=== PATIENT | female | born 1985 | race Caucasian/White ===

== ENCOUNTER 2024-07-28 13:29 | Outpatient (AMB) | payer MEDICAID, SELFPAY ==
[2024-07-28 14:01] VITALS: BP 118/76; PULSE 101; RESP 18; TEMP 36.2; O2SAT 98; BMI 24.7
--- NOTE | 2024-07-28 14:01 | OBCLNT_ITS ---
Vital Signs 07/28/24 14:01 Height 1.63 m Height Method Stated Weight 65.544 kg Weight Measurement Method Standing Scale BMI 24.7 BP 118/76 Blood Pressure Source Automatic Cuff Blood Pressure Location Left Upper Arm Position Sitting Respiration 18 Pulse 101 H Pulse Source Monitor Temp 97.2 F Temp Source Oral Pulse Oximetry (%) 98 Oxygen Delivery Method Room Air Allergies/Home Meds Allergies & Medications Allergies No Known Allergies Allergy (Verified 07/28/24 14:03) Medication Reconciliation doxylamine 10 mg-pyridoxine (vit B6) 10 mg tablet,delayed release (Diclegis) 1 tab PO BID 30 days #60 tabs 07/28/24 [Rx] Intake Visit Data Collection New Patient or Established: New Patient (never been to [facility]) Reason for Visit:: OBI Seen by Clinical Staff ONLY (RN/MA): No Director Of Sales Marketing Required: No Do You Feel Safe at Home: Yes Authorities Contacted: N/A PCP or OBGYN visit in last 3 months: No Hx Now: Yes Are you currently on any form of Control: No Last menstrual period: 02/09/24 Pain Present Currently: No Pain Scale Used: Zavala-Smart/Numerical Pain scale:: 0 Smoking Status Smoking Status: Never smoker Questionnaires Covid-19 Vaccine Questionnaire Has patient been vacinated for Covid-19 Have you been vacinated for Covid-19: Yes PHQ-9 PHQ-2 Over the last 2 weeks, how often have you been bothered by any of the following problems? 1. Little interest or pleasure in doing things: not at all 2. Feeling down, depressed, or hopeless: not at all Total score: 0 PHQ-9 3. Trouble falling or staying asleep, or sleeping too much: Not at all 4. Feeling tired or having little energy: Not at all 5. Poor appetite or overeating: Not at all 6. Feeling bad about yourself - or that you are a failure or have let yourself or your family down: Not at all 7. Trouble concentrating on things, such as reading the newspaper or watching television: Not at all 8. Moving or speaking so slowly that other people could have noticed? - Or the opposite - being so fidgety or restless that you have been moving around a lot more than usual: not at all 9. Thoughts that you would be better off or of hurting yourself in some way: Not at all Total score: 0 If you checked off any problems, how difficult have these problems made it for you to do your work, take care of things at home, or get along with other people?: not difficult at all Source: Developed by Drs. Med Montes, Mariza Estevez, Carlos Enrique Gilman and colleagues, with an educational davon from [employer]. Depression screen completed yes Social History Living Situation History Marital Status: Lives With: Family Housing: House Tobacco History Smoking Status: Never smoker Second Hand Smoke Exposure: No Alcohol History Alcohol Intake: Never Domestic Abuse History Do You Feel Safe at Home: Yes Past Medical History Past Medical History Have you ever been diagnosed with any of the following: History of Present Illness HPI Narrative 39 yo for OBI. lmp 02/08/25. EDC 11/12/24. limited OB care. sono in [place], 06/19/24. fetus 19w5. EDC 11/09/24. consistent with dates. taking PNV and folic acid and low dose ASA. c/o nausea. no PTL complaints. + FM, no ptl complaints. denies PMH,no social habit, no surgery OB Initial Visit Menstrual History Menstrual reliability: definite Flow: normal Menstrual regularity: regular Monthly: Yes Age at menarche: 14 On control pills at conception: No OB History : 1 Para: 0 Hx # Pregnancies: 0 Hx Total # of Abortions (Spontaneous & Elective): 0 # of Living Children: 0 Infection History & Risk Evaluation History of STDs: none HIV risk evaluation: low risk Hepatitis B risk evaluation: low risk Patient or partner has history of Genital Herpes: No Varicella/chicken pox status: immunized Genetic Screening & History Genetic Screening/Teratology Counseling - Includes patient, baby's father, or anyone in either family with: 1. Patient's age 35 years or older as of estimated date of delivery: Yes 2. Thalassemia (Surinamese, Icelandic, Mediterranean, or Background); MCV less than 80: No 3. Neural Tube Defect (Meningomyelocele, Spina Bifida, or Anencephaly): No 4. Congenital Heart Defect: No 5. Down Syndrome: No 6. Daniel-Sachs (Ashkenazi Buddhism, Cajun, Spanish Palestinian): No 7. Reji Disease (Ashkenazi Buddhism): No 8. Familial Dysautonomia (Ashkenazi Buddhism): No 9. Sickle Cell Disease or Trait (): No 10. Hemophilia or other blood disorders: No 11. Muscular Dystrophy: No 12. Cystic Fibrosis: No 13. Tatiana's Chorea: No 14. Mental Retardation/Autism: No 15. Other inherited genetic or chromosomal disorder: No 16. Maternal Metabolic Disorder (EG,TYPE 1 Diabetes, PKU): No 17. Patient or baby's father had a child with defects not listed above: No 18. Recurrent loss or a stillbirth: No 19. Medications (including supplements, vitamins, herbs or otc drugs)/illicit/recreational drugs/alcohol since last menstrual period: No 20. Any other: No Infection History 1. Live with someone with TB or exposed to TB: No 2. Rash or viral illness since last menstrual period: No 3. Hepatitis B,C: No Other (see comments) Source: [employer] Review of Systems Review of Systems Systems Reviewed: All systems reviewed, normal except as documented Exam Narrative Physical exam: fh:24, fht: 145 General Limitations: no limitations General Appearance: alert, in no apparent distress, comfortable, cooperative, healthy appearing, well developed and well groomed Head Head exam: atraumatic, normocephalic and normal inspection Chest Chest inspection: Present normal inspection and symmetric chest wall rise Resp Respiratory exam: Present normal lung sounds bilaterally Card Cardiovascular exam: Present regular rate, normal rhythm and normal heart sounds Abdominal Abdominal exam: Present soft and normal bowel sounds Psych Psychiatric exam: Present normal affect and normal mood Assessment & Plan Diagnosis / Problem List (1) Amenorrhea: (2) Encounter for supervision of normal first , second trimester: Status: Acute (3) Advanced maternal age (AMA) in : Status: Acute Plan continue PNV,iron and folic acid, rx for Diclegesis x60, comfort measure for nausea reviewed, ptl precaution discussed. diet and exercise were reviewed. OB panel, NIPT and carrier screen ordered, schedule MFM referral. continue low dose ASA. patent needs 1 hr gtt nv. rtc 4 week Office Procedures OB Clinic LOC & Office Proc's Nursing/Assessment Patient Status: Initial/New Patient OB Clinic Nursing Assessment: BP Monitoring, Medication Reconciliation, Update PMH in EMR and Vital Signs OB Clinic Coordination of Care: Consent,records obtained, informed consent, Education Simp Pt/Fam, Lab and Imaging orders and Staff clarify orders Special Needs: Heart tones New Patient Charge New Patient Point Assignment: 1119 New Patient Point Charge: NUMBERER AND WIRER Level 4 ([id number]) In Clinic Bedside tests Bedside HCG: Yes Urine HCG Ambulatory Location Ambulatory Dept Location: OB Clinic Urine HCG HCG: Yes Results Urine HCG Urine HCG Positive Last Edit by Alisha Ruelas MA on 07/28/24 14:09
--- NOTE | 2024-07-28 14:27 | AMB.OBINITIA ---
Vital Signs 07/28/24 14:01 07/28/24 14:29 Height 1.63 m Height Method Stated Weight 65.544 kg Weight Measurement Method Standing Scale BMI 24.7 BP 118/76 118/76 Blood Pressure Source Automatic Cuff Blood Pressure Location Left Upper Arm Position Sitting Respiration 18 18 Pulse 101 H 101 H Pulse Source Monitor Temp 97.2 F 97.2 F Temp Source Oral Pulse Oximetry (%) 98 98 Oxygen Delivery Method Room Air Allergies/Home Meds Allergies & Medications Allergies No Known Allergies Allergy (Verified 07/28/24 14:03) Medication Reconciliation doxylamine 10 mg-pyridoxine (vit B6) 10 mg tablet,delayed release (Diclegis) 1 tab PO BID 30 days #60 tabs 07/28/24 [Rx] Intake Visit Data Collection Do You Feel Safe at Home: Yes Smoking Status Smoking Status: Never smoker Questionnaires Covid-19 Vaccine Questionnaire Has patient been vacinated for Covid-19 Have you been vacinated for Covid-19: Yes PHQ-9 PHQ-2 Over the last 2 weeks, how often have you been bothered by any of the following problems? 1. Little interest or pleasure in doing things: not at all PHQ-9 3. Trouble falling or staying asleep, or sleeping too much: Not at all 4. Feeling tired or having little energy: Not at all 5. Poor appetite or overeating: Not at all 6. Feeling bad about yourself - or that you are a failure or have let yourself or your family down: Not at all 7. Trouble concentrating on things, such as reading the newspaper or watching television: Not at all 8. Moving or speaking so slowly that other people could have noticed? - Or the opposite - being so fidgety or restless that you have been moving around a lot more than usual: not at all Total score: 0 If you checked off any problems, how difficult have these problems made it for you to do your work, take care of things at home, or get along with other people?: not difficult at all Source: Developed by Drs. Med Montes, Mariza Estevez, Carlos Enrique Gilman and colleagues, with an educational davon from [employer]. Social History Living Situation History Marital Status: Lives With: Family Housing: House Tobacco History Smoking Status: Never smoker Second Hand Smoke Exposure: No Alcohol History Alcohol Intake: Never Domestic Abuse History Do You Feel Safe at Home: Yes Past Medical History Past Medical History Have you ever been diagnosed with any of the following: Results Objective Laboratory: Laboratory Last Values POC Urine HCG, Qual Positive 07/28/24 14:08 Assessment & Plan Diagnosis / Problem List (1) Amenorrhea: (2) Encounter for supervision of normal first , second trimester: Status: Acute Office Procedures OB Clinic LOC & Office Proc's Nursing/Assessment Patient Status: Initial/New Patient OB Clinic Nursing Assessment: BP Monitoring, Medication Reconciliation, Update PMH in EMR and Vital Signs OB Clinic Coordination of Care: Consent,records obtained, informed consent, Education Simp Pt/Fam, Lab and Imaging orders and Staff clarify orders Special Needs: Heart tones New Patient Charge New Patient Point Assignment: 1119 New Patient Point Charge: COSMETIC CONSULTANT Level 4 ([id number]) In Clinic Bedside tests Bedside HCG: Yes Urine HCG Ambulatory Location Ambulatory Dept Location: OB Clinic Urine HCG HCG: Yes Results Urine HCG Urine HCG Positive Last Edit by Alisha Ruelas MA on 07/28/24 14:09
== END 2024-07-28 14:23 | disposition home or self-care (01) ==
LOC: HODSOBC 13:29
PROVIDERS: Supervising Provider Advanced Practice Midwife; Visit Provider Advanced Practice Midwife
DX: O09.512 Supervision of elderly primigravida, second trimester (principal); Z3A.19 19 weeks gestation of pregnancy
CPT/HCPCS: 81001; 81025; 99204; G0463

== ENCOUNTER 2024-08-25 14:12 | Outpatient (AMB) | payer MEDICAID, SELFPAY ==
[2024-08-25 14:19] VITALS: BP 120/75; PULSE 100; RESP 18; TEMP 36.2; O2SAT 98; BMI 25.0
--- NOTE | 2024-08-25 14:19 | OBCLNT_ITS ---
Vital Signs 08/25/24 14:19 Height 1.63 m Height Method Stated Weight 66.395 kg Weight Measurement Method Standing Scale BMI 25.0 BP 120/75 Blood Pressure Source Automatic Cuff Blood Pressure Location Left Upper Arm Position Sitting Respiration 18 Pulse 100 Pulse Source Monitor Temp 97.2 F Temp Source Oral Pulse Oximetry (%) 98 Oxygen Delivery Method Room Air Allergies/Home Meds Allergies & Medications Allergies No Known Allergies Allergy (Verified 08/25/24 14:20) Medication Reconciliation doxylamine 10 mg-pyridoxine (vit B6) 10 mg tablet,delayed release (Diclegis) 1 tab PO BID 30 days #60 tabs 07/28/24 [Rx Confirmed 08/25/24] clotrimazole 2 % vaginal cream (Gyne-Lotrimin) 1 appful vaginal QHS 7 days #21 grams 08/25/24 [Rx] doxylamine 10 mg-pyridoxine (vit B6) 10 mg tablet,delayed release (Diclegis) 1 tab PO BID 30 days #60 tabs 08/25/24 [Rx] nitrofurantoin monohydrate/macrocrystals 100 mg capsule (Macrobid) 100 mg PO BID 7 days #14 caps 08/25/24 [Rx] Intake Visit Data Collection New Patient or Established: Established Patient (seen at [facility] within 3 years) Reason for Visit:: OBC/ NEEDS REFILLS ON NAUSEA MEDICATION Seen by Clinical Staff ONLY (RN/MA): No Stone Lathe Operator Required: No Do You Feel Safe at Home: Yes Authorities Contacted: N/A PCP or OBGYN visit in last 3 months: Yes Date of Last PCP or OBGYN visit: 07/28/24 Hx Now: Yes Are you currently on any form of Control: No Pain Present Currently: No Pain Scale Used: Zavala-Smart/Numerical Pain scale:: 0 Smoking Status Smoking Status: Never smoker Questionnaires Covid-19 Vaccine Questionnaire Has patient been vacinated for Covid-19 Have you been vacinated for Covid-19: Yes PHQ-9 PHQ-2 Over the last 2 weeks, how often have you been bothered by any of the following problems? 1. Little interest or pleasure in doing things: not at all 2. Feeling down, depressed, or hopeless: not at all Total score: 0 PHQ-9 3. Trouble falling or staying asleep, or sleeping too much: Not at all 4. Feeling tired or having little energy: Not at all 5. Poor appetite or overeating: Not at all 6. Feeling bad about yourself - or that you are a failure or have let yourself or your family down: Not at all 7. Trouble concentrating on things, such as reading the newspaper or watching television: Not at all 8. Moving or speaking so slowly that other people could have noticed? - Or the opposite - being so fidgety or restless that you have been moving around a lot more than usual: not at all 9. Thoughts that you would be better off or of hurting yourself in some way: Not at all Total score: 0 If you checked off any problems, how difficult have these problems made it for you to do your work, take care of things at home, or get along with other people?: not difficult at all Source: Developed by Drs. Med Montes, Mariza Estevez, Carlos Enrique Gilman and colleagues, with an educational davon from [employer]. Depression screen completed yes Social History Living Situation History Lives With: Family Housing: House Tobacco History Smoking Status: Never smoker Second Hand Smoke Exposure: No Alcohol History Alcohol Intake: Never Domestic Abuse History Do You Feel Safe at Home: Yes Care OB Visit Log OB Flowsheet Initial Weight: Not Recorded Date -?-?-?-?-?-?-?-?-?-?-?-?- EGA Weight BP Alb Glu CTX Pres Fundal ht FHR Mov Dilation Station Effacement Hx Notes Visit Note 07/28/24 -?-?-?-?-?-?-?--?-?-?-?-?- 25w 2d 65.544 kg 118/76 absent unknown 24 145 active 39 yo for OBI, limited OB care. sono in [place] 06/19/34. 19w5, edc 02/08/25. consistenet with LMP, no PMH,no social habit,no surgery. c/o nausea. denies PTL complaints. patient needs 1 hr gtt NV, today, ordered OB panel, NIPT and carrier screen, schedule MFM sono, discuss diet and weight, walk daily. RTC 4 week 08/25/24 -?-?-?-?-?-?-?-?-?-?-?-?- 29w 2d 66.395 kg 120/75 absent cephalic 29 145 active c/o dysuria and vag discharge, UA: + ECOLI. vagiana swollen, white curdy discharge.fetus active, no PTL complaints. MFM schedule for 10/16. patient going to [place] for vacation. no PTL complaints c/o dysuria and vag discharg e, UA: + ECOLI. vagiana swollen, white curdy discharge.fetus active, no PTL complaints. MFM schedule for 10/16. patient going to [place] for vacation. no PTL complaints. Increased nausea keep mfm appointment. patient declined TDAP today. increase fluid. comfort measure for vaginitis, Nuswab for vaginits and GC/CT. macrobid 100 bid x7, gynelotrimin x 7,PTL precaution, rtc 3 week keep mfm appointment. patien t declined TDAP today. increase fluid. comfort measure for vaginitis, Nuswab for vaginits and GC/CT. macrobid 100 bid x7, gynelotrimin x 7,PTL precaution, rtc 3 week start diclegesis bid JOE Calculator Estimated Delivery Date Method Current WG Current Estimate 11/08/24 Ultrasound #1 29w 3d Other Estimates 11/15/24 LMP (Certain) 28w 3d Notes Visit Date: 08/25/24 Last Updated by: Diana Sebastian, CNM 39 yo . sono 06/19/24: 19w5: edc 11/08/24. LMP 02/09/24. EDC 11/15/24. O+, abs-, rr;;nr, rub imm, HBSAG-,HIV-,HC-, UA:+ Ecoli, Office Procedures OB Clinic LOC & Office Proc's Nursing/Assessment Patient Status: Established Patient OB Clinic Nursing Assessment: Medication Reconciliation, Update PMH in EMR and Vital Signs OB Clinic Coordination of Care: Education Complex Pt/Fam, Consent,records obtained, informed consent, Lab and Imaging orders and Staff clarify orders Special Needs: Heart tones Established Patient Charge Established Patient Point Assignment: 110 Established Patient Point Charge: EP Level 3 (80-115) Assessment & Plan Diagnosis / Problem List (1) Chronic candidiasis of vulva and vagina: Status: Acute (2) Advanced maternal age (AMA) in : Status: Acute (3) UTI (urinary tract infection): Status: Acute Qualifiers: Urinary tract infection type: acute cystitis Plan New swab today. Rx for TRANSPORTATION MODELER Lotrimin 1-2 per Aure nightly x 7. I gave prescription for Macrobid 100 twice daily x 7 for documented UTI in UA. And patient received Diclegis she is going to take it twice daily for nausea. Discussed comfort measures for nausea and vomiting. Keep maternal- medicine appointment as scheduled in September. Increase fluids and rest and return in 3 weeks for OB check and patient declined Tdap Additional Plan Follow Up: 3 Weeks (obc)
== END 2024-08-25 15:10 | disposition home or self-care (01) ==
LOC: HODSOBC 14:12
PROVIDERS: Supervising Provider Advanced Practice Midwife; Visit Provider Advanced Practice Midwife
DX: O09.513 Supervision of elderly primigravida, third trimester (principal); Z3A.29 29 weeks gestation of pregnancy; O09.893 Supervision of other high risk pregnancies, third trimester; O23.43 Unspecified infection of urinary tract in pregnancy, third trimester; N39.0 Urinary tract infection, site not specified; B96.20 Unspecified Escherichia coli [E. coli] as the cause of diseases classified elsewhere; O98.813 Other maternal infectious and parasitic diseases complicating pregnancy, third trimester; B37.31 Acute candidiasis of vulva and vagina; Z28.21 Immunization not carried out because of patient refusal
CPT/HCPCS: 99213; G0463

== ENCOUNTER 2024-09-08 13:58 | Outpatient (AMB) | payer MEDICAID, SELFPAY ==
[2024-09-08 14:09] VITALS: BP 105/65; PULSE 78; RESP 17; TEMP 36.8; O2SAT 98; BMI 25.5
--- NOTE | 2024-09-08 14:09 | OBCLNT_ITS ---
Vital Signs 09/08/24 14:09 Height 1.63 m Height Method Stated Weight 67.812 kg Weight Measurement Method Standing Scale BMI 25.5 BP 105/65 Blood Pressure Source Automatic Cuff Blood Pressure Location Right Upper Arm Position Sitting Respiration 17 Pulse 78 Pulse Source Monitor Temp 98.2 F Temp Source Temporal Artery Scan Pulse Oximetry (%) 98 Oxygen Delivery Method Room Air Allergies/Home Meds Allergies & Medications Allergies No Known Allergies Allergy (Verified 09/08/24 14:10) Medication Reconciliation doxylamine 10 mg-pyridoxine (vit B6) 10 mg tablet,delayed release (Diclegis) 1 tab PO BID 30 days #60 tabs 07/28/24 [Rx Confirmed 09/08/24] doxylamine 10 mg-pyridoxine (vit B6) 10 mg tablet,delayed release (Diclegis) 1 tab PO BID 30 days #60 tabs 08/25/24 [Rx Confirmed 09/08/24] Intake Visit Data Collection New Patient or Established: Established Patient (seen at [facility] within 3 years) Reason for Visit:: OBC Seen by Clinical Staff ONLY (RN/MA): No Boom Boss Required: No Do You Feel Safe at Home: Yes Authorities Contacted: N/A PCP or OBGYN visit in last 3 months: Yes Date of Last PCP or OBGYN visit: 08/25/24 Hx Now: Yes Are you currently on any form of Control: No Pain Present Currently: No Pain Scale Used: Zavala-Smart/Numerical Pain scale:: 0 Smoking Status Smoking Status: Never smoker Questionnaires Covid-19 Vaccine Questionnaire Has patient been vacinated for Covid-19 Have you been vacinated for Covid-19: No PHQ-9 PHQ-2 Over the last 2 weeks, how often have you been bothered by any of the following problems? 1. Little interest or pleasure in doing things: not at all 2. Feeling down, depressed, or hopeless: not at all Total score: 0 PHQ-9 3. Trouble falling or staying asleep, or sleeping too much: Not at all 4. Feeling tired or having little energy: Not at all 5. Poor appetite or overeating: Not at all 6. Feeling bad about yourself - or that you are a failure or have let yourself or your family down: Not at all 7. Trouble concentrating on things, such as reading the newspaper or watching television: Not at all 8. Moving or speaking so slowly that other people could have noticed? - Or the opposite - being so fidgety or restless that you have been moving around a lot more than usual: not at all 9. Thoughts that you would be better off or of hurting yourself in some way: Not at all Total score: 0 If you checked off any problems, how difficult have these problems made it for you to do your work, take care of things at home, or get along with other people?: not difficult at all Source: Developed by Drs. Med Montes, Mariza Estevez, Carlos Enrique Gilman and colleagues, with an educational davon from [employer]. Depression screen completed yes Social History Living Situation History Marital Status: Unknown Lives With: Family Housing: House Tobacco History Smoking Status: Never smoker Second Hand Smoke Exposure: No Alcohol History Alcohol Intake: Never Domestic Abuse History Do You Feel Safe at Home: Yes Care OB Visit Log OB Flowsheet Initial Weight: Not Recorded Date -?-?-?-?-?-?-?-?-?-?-?-?- EGA Weight BP Alb Glu CTX Pres Fundal ht FHR Mov Dilation Station Effacement Hx Notes Visit Note 07/28/24 -?-?-?-?-?-?-?-?-?-?-?-?- 25w 2d 65.544 kg 118/76 absent unknown 24 145 active 39 yo for OBI, limited OB care. sono in [place] 06/19/34. 19w5, edc 02/08/25. consistenet with LMP, no PMH,no social habit,no surgery. c/o nausea. denies PTL complaints. patient needs 1 hr gtt NV, today, ordered OB panel, [facility] sono, discuss diet and weight, walk daily. RTC 4 week 08/25/24 -?-?-?-?-?-?-?-?-?-?-?-?- 29w 2d 66.395 kg 120/75 absent cephalic 29 145 active c/o dysuria and vag discharge, UA: + ECOLI. vagiana swollen, white curdy discharge.fetus active, no PTL complaints. [facility] schedule for 10/16. patient going to [place] for vacation. no PTL complaints c/o dysuria and vag discharg e, UA: + ECOLI. vagiana swollen, white curdy discharge.fetus active, no PTL complaints. MFM schedule for 10/16. patient going to [place] for vacation. no PTL complaints. Increased nausea keep mfm appointment. patient declined TDAP today. increase fluid. comfort measure for vaginitis, Nuswab for vaginits and GC/CT. macrobid 100 bid x7, gynelotrimin x 7,PTL precaution, rtc 3 week keep mfm appointment. patien t declined TDAP today. increase fluid. comfort measure for vaginitis, Nuswab for vaginits and GC/CT. macrobid 100 bid x7, gynelotrimin x 7,PTL precaution, rtc 3 week start diclegesis bid 09/08/24 -?-?-?-?-?-?-?-?-?-?-?-?- 31w 2d 67.812 kg 105/65 absent cephalic 30 145 active MFM appointment 10/06, fetus active, nausea improved. denies ptl complaints, no VB,No LOF 3rd tri lab ordered, TDAP, discuss ptl precaution. fkc bid, hydrate. mfm appt 10/06, rtc 3 week JOE Calculator Estimated Delivery Date Method Current WG Current Estimate 11/08/24 Ultrasound #1 31w 2d Other Estimates 11/15/24 LMP (Certain) 30w 2d Notes Visit Date: 08/25/24 Last Updated by: Diana Sebastian CNM 39 yo . sono 06/19/24: 19w5: edc 11/08/24. LMP 02/09/24. EDC 11/15/24. O+, abs-, rr;;nr, rub imm, HBSAG-,HIV-,HC-, UA:+ Ecoli, Office Procedures OB Clinic LOC & Office Proc's Nursing/Assessment Patient Status: Established Patient OB Clinic Nursing Assessment: Medication Reconciliation, Update PMH in EMR and Vital Signs OB Clinic Coordination of Care: Complex Care and Chronic Disease 1-5, Consent,records obtained, informed consent, Education Simp Pt/Fam and Staff clarify orders Special Needs: Heart tones Established Patient Charge Established Patient Point Assignment: 115 Established Patient Point Charge: EP Level 3 (80-115) Injection/Vaccine Admin Admin 1st Vaccine: Yes Immunizations diphth,pertus(acell),tetanus 2.5 Lf unit-8 mcg-5 Lf/0.5mL IM syringe Performing Provider: Diana Sebastian CNM Performing Location: [facility] Administered by: Vanessa Rosas MA on 09/08/24 16:43 Dose Route Admin Location Dispensed Lot Number Expiration Date [facility] Maintenance Painter Apprentice 0.5 mL IM Left Deltoid 0.5 mL [id number] 11/17/26 16133-556-51 [employer] VIS Given Date VIS Provided VIS Publication Date 09/08/24 Single Vaccine 24 Eligibility Eligibility Date Funding Source [facility] Assessment & Plan Diagnosis / Problem List (1) Advanced maternal age (AMA) in : Status: Acute (2) Encounter for supervision of normal first , second trimester: Status: Acute Plan TDAP, 3rd tri lab ordered, [facility] sono 10/06, discuss ptl precaution and danger s/s, discuss FKC bid, rtc 3 week Additional Plan Follow Up: 3 Weeks (obc)
== END 2024-09-08 15:00 | disposition home or self-care (01) ==
LOC: HODSOBC 13:58
PROVIDERS: PCP Advanced Practice Midwife; Referring Provider Advanced Practice Midwife; Supervising Provider Advanced Practice Midwife; Visit Provider Advanced Practice Midwife
DX: O09.513 Supervision of elderly primigravida, third trimester (principal); Z3A.31 31 weeks gestation of pregnancy; Z23 Encounter for immunization
CPT/HCPCS: 90471; 90715; 99213; G0463

== ENCOUNTER 2024-10-05 14:25 | Outpatient (AMB) | payer MEDICAID, SELFPAY ==
[2024-10-05 14:48] VITALS: BP 130/78; PULSE 85; RESP 17; TEMP 36.7; O2SAT 98; BMI 26.4
--- NOTE | 2024-10-05 14:48 | AMB.OBVISIT ---
Vital Signs 10/05/24 14:48 Height 1.63 m Height Method Measured Weight 70.364 kg Weight Measurement Method Standing Scale BMI 26.4 BP 130/78 Blood Pressure Source Automatic Cuff Blood Pressure Location Right Upper Arm Position Sitting Respiration 17 Pulse 85 Pulse Source Monitor Temp 98.0 F Temp Source Temporal Artery Scan Pulse Oximetry (%) 98 Oxygen Delivery Method Room Air Allergies/Home Meds Allergies & Medications Allergies No Known Allergies Allergy (Verified 10/05/24 14:49) Medication Reconciliation doxylamine 10 mg-pyridoxine (vit B6) 10 mg tablet,delayed release (Diclegis) 1 tab PO BID 30 days #60 tabs 07/28/24 [Rx Confirmed 10/05/24] doxylamine 10 mg-pyridoxine (vit B6) 10 mg tablet,delayed release (Diclegis) 1 tab PO BID 30 days #60 tabs 08/25/24 [Rx Confirmed 10/05/24] docusate sodium 100 mg capsule (Stool Softener) 100 mg PO QDAY 90 days #90 caps 09/17/24 [Rx Confirmed 10/05/24] ferrous sulfate 325 mg (65 mg iron) tablet 325 mg PO BID 90 days #180 tabs 09/17/24 [Rx Confirmed 10/05/24] ascorbic acid (vitamin C) 500 mg capsule 500 mg PO BID #60 caps 10/05/24 [Rx] Intake Visit Data Collection New Patient or Established: Established Patient (seen at [facility] within 3 years) Reason for Visit:: C Consent obtained for Telemed Visit: No Seen by Clinical Staff ONLY (RN/MA): No Educational Guidance Counselor Required: No Do You Feel Safe at Home: Yes Authorities Contacted: N/A PCP or OBGYN visit in last 3 months: Yes Date of Last PCP or OBGYN visit: 09/08/24 Hx Now: Yes Are you currently on any form of Control: No Pain Present Currently: No Pain Scale Used: Zavala-Smart/Numerical Pain scale:: 0 Smoking Status Smoking Status: Never smoker Questionnaires Covid-19 Vaccine Questionnaire Has patient been vacinated for Covid-19 Have you been vacinated for Covid-19: No PHQ-9 PHQ-2 Over the last 2 weeks, how often have you been bothered by any of the following problems? 1. Little interest or pleasure in doing things: not at all PHQ-9 8. Moving or speaking so slowly that other people could have noticed? - Or the opposite - being so fidgety or restless that you have been moving around a lot more than usual: not at all Source: Developed by Drs. Med Montes, Mariza Estevez, Carlos Enrique Gilman and colleagues, with an educational davon from [employer]. Social History Living Situation History Lives With: Family Housing: House Tobacco History Smoking Status: Never smoker Second Hand Smoke Exposure: No Alcohol History Alcohol Intake: Never Domestic Abuse History Do You Feel Safe at Home: Yes Care OB Visit Log OB Flowsheet Initial Weight: Not Recorded Date <del>?</del> EGA Weight BP Alb Glu CTX Pres Fundal ht FHR Mov Dilation Station Effacement Hx Notes Visit Note 07/28/24 <del>?</del> 25w 2d 65.544 kg 118/76 absent unknown 24 145 active 39 yo for OBI, limited OB care. sono in [place] 06/19/34. 19w5, edc 02/08/25. consistenet with LMP, no PMH,no social habit,no surgery. c/o nausea. denies PTL complaints. patient needs 1 hr gtt NV, today, ordered OB panel, NIPT and carrier screen, schedule MFM sono, discuss diet and weight, walk daily. RTC 4 week 08/25/24 <del>?</del> 29w 2d 66.395 kg 120/75 absent cephalic 29 145 active c/o dysuria and vag discharge, UA: + ECOLI. vagiana swollen, white curdy discharge.fetus active, no PTL complaints. MFM schedule for 10/16. patient going to [place] for vacation. no PTL complaints c/o dysuria and vag discharge, UA: + ECOLI. vagiana swollen, white curdy discharge.fetus active, no PTL complaints. MFM schedule for 10/16. patient going to [place] for vacation. no PTL complaints. Increased nausea keep mfm appointment. patient declined TDAP today. increase fluid. comfort measure for vaginitis, Nuswab for vaginits and GC/CT. macrobid 100 bid x7, gynelotrimin x 7,PTL precaution, rtc 3 week keep mfm appointment. patient declined TDAP today. increase fluid. comfort measure for vaginitis, Nuswab for vaginits and GC/CT. macrobid 100 bid x7, gynelotrimin x 7,PTL precaution, rtc 3 week start diclegesis bid 09/08/24 <del>?</del> 31w 2d 67.812 kg 105/65 absent cephalic 30 145 active MFM appointment 10/06, fetus active, nausea improved. denies ptl complaints, no VB,No LOF 3rd tri lab ordered, TDAP, discuss ptl precaution. fkc bid, hydrate. mfm appt 10/06, rtc 3 week 10/05/24 <del>?</del> 35w 1d 70.364 kg 130/78 absent cephalic 34 147 active f/u mfm appointment 10/06, discuss labor precaution, fkc bid, GBS today. increase fluid. increase iron, start vitamin c with iron, high iron foodsrtc 1 week obc JOE Calculator Estimated Delivery Date Method Current WG Current Estimate 11/08/24 Ultrasound #1 35w 1d Other Estimates 11/15/24 LMP (Certain) 34w 1d Notes Visit Date: 08/25/24 Last Updated by: Diana Sebastian, EDUARDO 39 yo . sono 06/19/24: 19w5: edc 11/08/24. LMP 02/09/24. EDC 11/15/24. O+, abs-, rr;;nr, rub imm, HBSAG-,HIV-,HC-, UA:+ Ecoli, Office Procedures OB Clinic LOC & Office Proc's Nursing/Assessment Patient Status: Established Patient OB Clinic Nursing Assessment: Medication Reconciliation, Update PMH in EMR and Vital Signs OB Clinic Coordination of Care: Complex Care and Chronic Disease 1-5, Consent,records obtained, informed consent and 4+ Authorizations needed Special Needs: Heart tones Established Patient Charge Established Patient Point Assignment: 115 Established Patient Point Charge: EP Level 3 (80-115) Assessment & Plan Diagnosis / Problem List (1) Encounter for supervision of high risk in third trimester, antepartum: Status: Acute (2) Advanced maternal age (AMA) in : Status: Acute Plan GBS today. Patient will start disability today. I gave patient verification. Discussed labor precautions. Kick count twice a day. Return in a week OB check. continue iron bid with vitamin C Additional Plan Follow Up: 1 Week (obc)
== END 2024-10-05 15:10 | disposition home or self-care (01) ==
LOC: HODSOBC 14:25
PROVIDERS: PCP Advanced Practice Midwife; Referring Provider Advanced Practice Midwife; Supervising Provider Advanced Practice Midwife; Visit Provider Advanced Practice Midwife
DX: O09.513 Supervision of elderly primigravida, third trimester (principal); Z3A.35 35 weeks gestation of pregnancy; Z36.85 Encounter for antenatal screening for Streptococcus B
CPT/HCPCS: 99213; G0463

== ENCOUNTER 2024-10-12 15:00 | Outpatient (AMB) | payer MEDICAID, SELFPAY ==
[2024-10-12 15:23] VITALS: BP 124/74; PULSE 82; RESP 17; TEMP 36.7; O2SAT 98; BMI 26.5
--- NOTE | 2024-10-12 15:23 | AMB.OBVISIT ---
Vital Signs 10/12/24 15:23 Height 1.63 m Height Method Measured Weight 70.534 kg Weight Measurement Method Standing Scale BMI 26.5 BP 124/74 Blood Pressure Source Automatic Cuff Blood Pressure Location Right Upper Arm Position Sitting Respiration 17 Pulse 82 Pulse Source Monitor Temp 98.0 F Temp Source Temporal Artery Scan Pulse Oximetry (%) 98 Oxygen Delivery Method Room Air Allergies/Home Meds Allergies & Medications Allergies No Known Allergies Allergy (Verified 10/12/24 15:23) Medication Reconciliation doxylamine 10 mg-pyridoxine (vit B6) 10 mg tablet,delayed release (Diclegis) 1 tab PO BID 30 days #60 tabs 07/28/24 [Rx Confirmed 10/12/24] doxylamine 10 mg-pyridoxine (vit B6) 10 mg tablet,delayed release (Diclegis) 1 tab PO BID 30 days #60 tabs 08/25/24 [Rx Confirmed 10/12/24] docusate sodium 100 mg capsule (Stool Softener) 100 mg PO QDAY 90 days #90 caps 09/17/24 [Rx Confirmed 10/12/24] ferrous sulfate 325 mg (65 mg iron) tablet 325 mg PO BID 90 days #180 tabs 09/17/24 [Rx Confirmed 10/12/24] ascorbic acid (vitamin C) 500 mg capsule 500 mg PO BID #60 caps 10/05/24 [Rx Confirmed 10/12/24] Intake Visit Data Collection New Patient or Established: Established Patient (seen at [facility] within 3 years) Reason for Visit:: [facility] Consent obtained for Telemed Visit: No Seen by Clinical Staff ONLY (RN/MA): No Environmental Protection Officer Required: No Do You Feel Safe at Home: Yes Authorities Contacted: N/A PCP or OBGYN visit in last 3 months: Yes Date of Last PCP or OBGYN visit: 10/05/24 Hx Now: Yes Are you currently on any form of Control: No Pain Present Currently: No Pain Scale Used: Zavala-Smart/Numerical Pain scale:: 0 Smoking Status Smoking Status: Never smoker Questionnaires Covid-19 Vaccine Questionnaire Has patient been vacinated for Covid-19 Have you been vacinated for Covid-19: No PHQ-9 PHQ-2 Over the last 2 weeks, how often have you been bothered by any of the following problems? 1. Little interest or pleasure in doing things: not at all PHQ-9 8. Moving or speaking so slowly that other people could have noticed? - Or the opposite - being so fidgety or restless that you have been moving around a lot more than usual: not at all Source: Developed by Drs. Med Montes, Mariza Estevez, Carlos Enrique Gilman and colleagues, with an educational davon from [employer]. Social History Living Situation History Lives With: Family Housing: House Tobacco History Smoking Status: Never smoker Second Hand Smoke Exposure: No Alcohol History Alcohol Intake: Never Domestic Abuse History Do You Feel Safe at Home: Yes Care OB Visit Log OB Flowsheet Initial Weight: Not Recorded Date <del>?</del> EGA Weight BP Alb Glu CTX Pres Fundal ht FHR Mov Dilation Station Effacement Hx Notes Visit Note 07/28/24 <del>?</del> 24w 2d 65.544 kg 118/76 absent unknown 24 145 active 39 yo for OBI, limited OB care. sono in [place] 06/19/34. 19w5, edc 02/08/25. consistenet with LMP, no PMH,no social habit,no surgery. c/o nausea. denies PTL complaints. patient needs 1 hr gtt NV, today, ordered OB panel, NIPT and carrier screen, schedule MFM sono, discuss diet and weight, walk daily. RTC 4 week 08/25/24 <del>?</del> 28w 2d 66.395 kg 120/75 absent cephalic 29 145 active c/o dysuria and vag discharge, UA: + ECOLI. vagiana swollen, white curdy discharge.fetus active, no PTL complaints. MFM schedule for 10/16. patient going to [place] for vacation. no PTL complaints c/o dysuria and vag discharge, UA: + ECOLI. vagiana swollen, white curdy discharge.fetus active, no PTL complaints. MFM schedule for 10/16. patient going to [place] for vacation. no PTL complaints. Increased nausea keep mfm appointment. patient declined TDAP today. increase fluid. comfort measure for vaginitis, Nuswab for vaginits and GC/CT. macrobid 100 bid x7, gynelotrimin x 7,PTL precaution, rtc 3 week keep mfm appointment. patient declined TDAP today. increase fluid. comfort measure for vaginitis, Nuswab for vaginits and GC/CT. macrobid 100 bid x7, gynelotrimin x 7,PTL precaution, rtc 3 week start diclegesis bid 09/08/24 <del>?</del> 30w 2d 67.812 kg 105/65 absent cephalic 30 145 active MFM appointment 10/06, fetus active, nausea improved. denies ptl complaints, no VB,No LOF 3rd tri lab ordered, TDAP, discuss ptl precaution. fkc bid, hydrate. mfm appt 10/06, rtc 3 week 10/05/24 <del>?</del> 34w 1d 70.364 kg 130/78 absent cephalic 34 147 active f/u mfm appointment 10/06, discuss labor precaution, fkc bid, GBS today. increase fluid. increase iron, start vitamin c with iron, high iron foodsrtc 1 week obc 10/12/24 <del>?</del> 35w 1d 70.534 kg 124/74 occasional cephalic 36 145 active She is active. Occasional contractions. Denies leaking or bleeding. Complains of some pressure. No other OB complaints Discussed GBS and ultrasound today. Reviewed kick count with patient twice a day. Increase fluids. Discussed labor precautions. Return week OB check JOE Calculator Estimated Delivery Date Method Current WG Current Estimate 11/15/24 Ultrasound #2 35w 1d Other Estimates 11/15/24 LMP (Certain) 35w 1d 11/08/24 Ultrasound #1 36w 1d Notes Visit Date: 10/12/24 Last Updated by: Diana Sebastian CNM GBS- Sono: 10/06/24: 34w2, 83% Visit Date: 08/25/24 Last Updated by: Diana Sebastian CNM 39 yo . sono 06/19/24: 19w5: edc 11/08/24. LMP 02/09/24. EDC 11/15/24. O+, abs-, rr;;nr, rub imm, HBSAG-,HIV-,HC-, UA:+ Ecoli, Office Procedures OB Clinic LOC & Office Proc's Nursing/Assessment Patient Status: Established Patient OB Clinic Nursing Assessment: Medication Reconciliation, Update PMH in EMR and Vital Signs OB Clinic Coordination of Care: Complex Care and Chronic Disease 1-5, Consent,records obtained, informed consent, Education Simp Pt/Fam and 4+ Authorizations needed Special Needs: Heart tones Established Patient Charge Established Patient Point Assignment: 130 Established Patient Point Charge: EP Level 4 (120-155) Assessment & Plan Diagnosis / Problem List (1) Encounter for supervision of high risk in third trimester, antepartum: Status: Acute Plan Discussed labor precautions. Kick counts twice a day. Increase fluids. Continue vitamins. Return in a week OB check Additional Plan Follow Up: 1 Week (obc)
== END 2024-10-12 16:27 | disposition home or self-care (01) ==
LOC: HODSOBC 15:00
PROVIDERS: Supervising Provider Advanced Practice Midwife; Visit Provider Advanced Practice Midwife
DX: O09.513 Supervision of elderly primigravida, third trimester (principal); Z3A.35 35 weeks gestation of pregnancy
CPT/HCPCS: 99214; G0463

== ENCOUNTER 2024-10-20 13:51 | Outpatient (AMB) | payer MEDICAID, SELFPAY ==
[2024-10-20 14:03] VITALS: BP 128/77; PULSE 91; RESP 17; TEMP 36.7; O2SAT 98; BMI 27.1
--- NOTE | 2024-10-20 14:03 | OBCLNT_ITS ---
Vital Signs 10/20/24 14:03 Height 1.63 m Height Method Measured Weight 72.178 kg Weight Measurement Method Standing Scale BMI 27.1 BP 128/77 Blood Pressure Source Automatic Cuff Blood Pressure Location Right Upper Arm Position Sitting Respiration 17 Pulse 91 Pulse Source Monitor Temp 98.0 F Temp Source Temporal Artery Scan Pulse Oximetry (%) 98 Oxygen Delivery Method Room Air Allergies/Home Meds Allergies & Medications Allergies No Known Allergies Allergy (Verified 10/20/24 14:05) Medication Reconciliation doxylamine 10 mg-pyridoxine (vit B6) 10 mg tablet,delayed release (Diclegis) 1 tab PO BID 30 days #60 tabs 07/28/24 [Rx Confirmed 10/20/24] doxylamine 10 mg-pyridoxine (vit B6) 10 mg tablet,delayed release (Diclegis) 1 tab PO BID 30 days #60 tabs 08/25/24 [Rx Confirmed 10/20/24] docusate sodium 100 mg capsule (Stool Softener) 100 mg PO QDAY 90 days #90 caps 09/17/24 [Rx Confirmed 10/20/24] ferrous sulfate 325 mg (65 mg iron) tablet 325 mg PO BID 90 days #180 tabs 09/17/24 [Rx Confirmed 10/20/24] ascorbic acid (vitamin C) 500 mg capsule 500 mg PO BID #60 caps 10/05/24 [Rx Confirmed 10/20/24] Intake Visit Data Collection New Patient or Established: Established Patient (seen at [facility] within 3 years) Reason for Visit:: C Consent obtained for Telemed Visit: No Seen by Clinical Staff ONLY (RN/MA): No Estimator And Drafter Required: No Do You Feel Safe at Home: Yes Authorities Contacted: N/A PCP or OBGYN visit in last 3 months: Yes Date of Last PCP or OBGYN visit: 10/12/24 Hx Now: Yes Are you currently on any form of Control: No Pain Present Currently: No Pain Scale Used: Zavala-Smart/Numerical Pain scale:: 0 Smoking Status Smoking Status: Never smoker Questionnaires Covid-19 Vaccine Questionnaire Has patient been vacinated for Covid-19 Have you been vacinated for Covid-19: No PHQ-9 PHQ-2 Over the last 2 weeks, how often have you been bothered by any of the following problems? 1. Little interest or pleasure in doing things: not at all PHQ-9 8. Moving or speaking so slowly that other people could have noticed? - Or the opposite - being so fidgety or restless that you have been moving around a lot more than usual: not at all Source: Developed by Drs. Med Montes, Mariza Estevez, Carlos Enrique Gilman and colleagues, with an educational davon from [employer]. Social History Living Situation History Lives With: Family Housing: House Tobacco History Smoking Status: Never smoker Second Hand Smoke Exposure: No Alcohol History Alcohol Intake: Never Domestic Abuse History Do You Feel Safe at Home: Yes Care OB Visit Log OB Flowsheet Initial Weight: Not Recorded Date -?-?-?-?-?-?-?-?-?-?-?-?- EGA Weight BP Alb Glu CTX Pres Fundal ht FHR Mov Dilation Station Effacement Hx Notes Visit Note 07/28/24 -?-?-?-?-?-?-?-?-?-?-?-?- 24w 2d 65.544 kg 118/76 absent unknown 24 145 active 39 yo for OBI, limited OB care. sono in [place] 06/19/34. 19w5, edc 02/08/25. consistenet with LMP, no PMH,no social habit,no surgery. c/o nausea. denies PTL complaints. patient needs 1 hr gtt [place], today, ordered OB panel, NIPT and carrier screen, schedule MFM sono, discuss diet and weight, walk daily. RTC 4 week 08/25/24 -?-?-?-?-?-?--?-?-?-?-?-?- 28w 2d 66.395 kg 120/75 absent cephalic 29 145 active c/o dysuria and vag discharge, UA: + ECOLI. vagiana swollen, white curdy discharge.fetus active, no PTL complaints. MFM schedule for 10/16. patient going to [place] for vacation. no PTL complaints c/o dysuria and vag discharg e, UA: + ECOLI. vagiana swollen, white curdy discharge.fetus active, no PTL complaints. MFM schedule for 10/16. patient going to [place] for vacation. no PTL complaints. Increased nausea keep mfm appointment. patient declined TDAP today. increase fluid. comfort measure for vaginitis, Nuswab for vaginits and GC/CT. macrobid 100 bid x7, gynelotrimin x 7,PTL precaution, rtc 3 week keep mfm appointment. patien t declined TDAP today. increase fluid. comfort measure for vaginitis, Nuswab for vaginits and GC/CT. macrobid 100 bid x7, gynelotrimin x 7,PTL precaution, rtc 3 week start diclegesis bid 09/08/24 -?-?-?-?-?-?-?-?-?-?-?-?- 30w 2d 67.812 kg 105/65 absent cephalic 30 145 active MFM appointment 10/06, fetus active, nausea improved. denies ptl complaints, no VB,No LOF 3rd tri lab ordered, TDAP, discuss ptl precaution. fkc bid, hydrate. mfm appt 10/06, rtc 3 week 10/05/24 -?-?-?-?-?-?-?-?-?-?-?-?- 34w 1d 70.364 kg 130/78 absent cephalic 34 147 active f/u mfm appointment 10/06, discuss labor pr ecaution, fkc bid, GBS today. increase fluid. increase iron, start vitamin c with iron, high iron foodsrtc 1 week obc 10/12/24 -?-?-?-?-?-?-?-?-?-?-?-?- 35w 1d 70.534 kg 124/74 occasional cephalic 36 145 active She is active. Occasional contractions. Denies leaking or bleeding. Complains of some pressure. No other OB complaints Discussed GBS and ultrasound today. Reviewed kick count with patient twice a day. Increase fluids. Discussed labor precautions. Return week OB check 10/20/24 -?-?-?-?-?-?-?-?-?-?-?-?- 36w 2d 72.178 kg 128/77 occasional cephalic 36 145 active No OB complaints. Denies leaking or bleeding. Reports good movement. Denies PIH complaints Continue k ick count twice a day. Discussed labor precautions and ER precautions. Return week OB check JOE Calculator Estimated Delivery Date Method Current WG Current Estimate 11/15/24 LMP (Certain) 36w 2d Other Estimates 11/08/24 Ultrasound #1 37w 2d 11/15/24 Ultrasound #2 36w 2d Notes Visit Date: 10/20/24 Last Updated by: Diana Sebastian CNM 39 yo OB Panel: O+,abs-, rpr;;nr, rub imm, hbsag-,hiv-, HC--, gc/ct-, UA-. GBS-, 1 hr gtt- LMP 02/09/24. EDC: 10/26/24 sono 06/19/24: 19w5. edc: 11/08/24 EFW 83% Visit Date: 10/12/24 Last Updated by: Diana Sebastian CNM GBS- Sono: 10/06/24: 34w2, 83% Visit Date: 08/25/24 Last Updated by: Diana Sebastian CNM 39 yo . sono 06/19/24: 19w5: edc 11/08/24. LMP 02/09/24. EDC 11/15/24. O+, abs-, rr;;nr, rub imm, HBSAG-,HIV-,HC-, UA:+ Ecoli, Office Procedures OB Clinic LOC & Office Proc's Nursing/Assessment Patient Status: Established Patient OB Clinic Nursing Assessment: Medication Reconciliation, Update PMH in EMR and Vital Signs OB Clinic Coordination of Care: Complex Care and Chronic Disease 1-5, Education Complex Pt/Fam and Consent,records obtained, informed consent Special Needs: Heart tones Established Patient Charge Established Patient Point Assignment: 110 Established Patient Point Charge: EP Level 3 (80-115) Assessment & Plan Diagnosis / Problem List (1) Encounter for supervision of high risk in third trimester, antepartum: Status: Acute (2) Advanced maternal age (AMA) in : Status: Acute Plan Discussed labor precautions kick count twice a day. ER precautions and signs symptoms of labor. Return week OB check Additional Plan Follow Up: 1 Week (obc)
== END 2024-10-20 14:26 | disposition home or self-care (01) ==
LOC: HODSOBC 13:51
PROVIDERS: Supervising Provider Advanced Practice Midwife; Visit Provider Advanced Practice Midwife
DX: O09.513 Supervision of elderly primigravida, third trimester (principal)
CPT/HCPCS: 99213; G0463

== ENCOUNTER 2024-10-26 12:56 | Outpatient (AMB) | payer MEDICAID, SELFPAY ==
[2024-10-26 13:05] VITALS: BP 138/80; PULSE 86; RESP 18; TEMP 36.9; O2SAT 98; BMI 27.5
--- NOTE | 2024-10-26 13:05 | OBCLNT_ITS ---
Vital Signs 10/26/24 13:05 Height 1.63 m Height Method Stated Weight 73.198 kg Weight Measurement Method Standing Scale BMI 27.5 BP 138/80 H Blood Pressure Source Automatic Cuff Blood Pressure Location Left Upper Arm Position Sitting Respiration 18 Pulse 86 Pulse Source Monitor Temp 98.5 F Temp Source Oral Pulse Oximetry (%) 98 Oxygen Delivery Method Room Air Allergies/Home Meds Allergies & Medications Allergies No Known Allergies Allergy (Verified 10/26/24 13:06) Medication Reconciliation doxylamine 10 mg-pyridoxine (vit B6) 10 mg tablet,delayed release (Diclegis) 1 tab PO BID 30 days #60 tabs 07/28/24 [Rx Confirmed 10/26/24] doxylamine 10 mg-pyridoxine (vit B6) 10 mg tablet,delayed release (Diclegis) 1 tab PO BID 30 days #60 tabs 08/25/24 [Rx Confirmed 10/26/24] docusate sodium 100 mg capsule (Stool Softener) 100 mg PO QDAY 90 days #90 caps 09/17/24 [Rx Confirmed 10/26/24] ferrous sulfate 325 mg (65 mg iron) tablet 325 mg PO BID 90 days #180 tabs 09/17/24 [Rx Confirmed 10/26/24] ascorbic acid (vitamin C) 500 mg capsule 500 mg PO BID #60 caps 10/05/24 [Rx Confirmed 10/26/24] Intake Visit Data Collection New Patient or Established: Established Patient (seen at [facility] within 3 years) Reason for Visit:: CARE Seen by Clinical Staff ONLY (RN/MA): No Member Of Parliament Required: No Do You Feel Safe at Home: Yes Authorities Contacted: N/A PCP or OBGYN visit in last 3 months: Yes Hx Now: Yes Are you currently on any form of Control: No Pain Present Currently: No Pain Scale Used: Zavala-Smart/Numerical Pain scale:: 0 Smoking Status Smoking Status: Never smoker Questionnaires Covid-19 Vaccine Questionnaire Has patient been vacinated for Covid-19 Have you been vacinated for Covid-19: Yes PHQ-9 PHQ-2 Over the last 2 weeks, how often have you been bothered by any of the following problems? 1. Little interest or pleasure in doing things: not at all 2. Feeling down, depressed, or hopeless: not at all Total score: 0 PHQ-9 3. Trouble falling or staying asleep, or sleeping too much: Not at all 4. Feeling tired or having little energy: Not at all 5. Poor appetite or overeating: Not at all 6. Feeling bad about yourself - or that you are a failure or have let yourself or your family down: Not at all 7. Trouble concentrating on things, such as reading the newspaper or watching television: Not at all 8. Moving or speaking so slowly that other people could have noticed? - Or the opposite - being so fidgety or restless that you have been moving around a lot more than usual: not at all 9. Thoughts that you would be better off or of hurting yourself in some way: Not at all Total score: 0 Source: Developed by Drs. Med Montes, Mariza Estevez, Carlos Enrique Gilman and colleagues, with an educational davon from [email or web address]. Depression screen completed yes Social History Living Situation History Lives With: Family Housing: House Tobacco History Smoking Status: Never smoker Second Hand Smoke Exposure: No Alcohol History Alcohol Intake: Never Domestic Abuse History Do You Feel Safe at Home: Yes Care OB Visit Log OB Flowsheet Initial Weight: Not Recorded Date -?-?-?-?-?-?-?-?-?-?-?-?- EGA Weight BP Alb Glu CTX Pres Fundal ht FHR Mov Dilation Station Effacement Hx Notes Visit Note 07/28/24 -?-?-?-?-?-?-?-?-?-?-?-?- 24w 2d 65.544 kg 118/76 absent unknown 24 145 active 39 yo for OBI, limited OB care. sono in [place] 06/19/34. 19w5, edc 02/08/25. consistenet with LMP, no PMH,no social habit,no surgery. c/o nausea. denies PTL complaints. patient needs 1 hr gtt [place], today, ordered OB panel, NIPT and carrier screen, schedule MFM sono, discuss diet and weight, walk daily. RTC 4 week 08/25/24 -?-?-?-?-?-?-?-?-?-?-?-?- 28w 2d 66.395 kg 120/75 absent cephalic 29 145 active c/o dysuria and vag discharge, UA: + ECOLI. vagiana swollen, white curdy discharge.fetus active, no PTL complaints. MFM schedule for 10/16. patient going to [place] for vacation. no PTL complaints c/o dysuria and vag discharg e, UA: + ECOLI. vagiana swollen, white curdy discharge.fetus active, no PTL complaints. MFM schedule for 10/16. patient going to [place] for vacation. no PTL complaints. Increased nausea keep mfm appointment. patient declined TDAP today. increase fluid. comfort measure for vaginitis, Nuswab for vaginits and GC/CT. macrobid 100 bid x7, gynelotrimin x 7,PTL precaution, rtc 3 week keep mfm appointment. patien t declined TDAP today. increase fluid. comfort measure for vaginitis, Nuswab for vaginits and GC/CT. macrobid 100 bid x7, gynelotrimin x 7,PTL precaution, rtc 3 week start diclegesis bid 09/08/24 -?-?-?-?-?-?-?-?-?-?-?-?- 30w 2d 67.812 kg 105/65 absent cephalic 30 145 active MFM appointment 10/06, fetus active, nausea improved. denies ptl complaints, no VB,No LOF 3rd tri lab ordered, TDAP, discuss ptl precaution. fkc bid, hydrate. mfm appt 10/06, rtc 3 week 10/05/24 -?-?-?-?-?-?-?--?-?-?-?-?- 34w 1d 70.364 kg 130/78 absent cephalic 34 147 active f/u mfm appointment 10/06, discuss labor pr ecaution, fkc bid, GBS today. increase fluid. increase iron, start vitamin c with iron, high iron foodsrtc 1 week obc 10/12/24 -?-?-?-?-?-?-?-?-?-?-?-?- 35w 1d 70.534 kg 124/74 occasional cephalic 36 145 active She is active. Occasional contractions. Denies leaking or bleeding. Complains of some pressure. No other OB complaints Discussed GBS and ultrasound today. Reviewed kick count with patient twice a day. Increase fluids. Discussed labor precautions. Return week OB check 10/20/24 -?-?-?-?-?-?-?-?-?-?-?-?- 36w 2d 72.178 kg 128/77 occasional cephalic 36 145 active No OB complaints. Denies leaking or bleeding. Reports good movement. Denies PIH complaints Continue k ick count twice a day. Discussed labor precautions and ER precautions. Return week OB check 10/26/24 -?-?-?-?-?-?-?-?-?-?-?-?- 37w 1d 73.198 kg 138/80 occasional cephalic 37 145 active No OB complaints. Reports good movement. Increased pressure. Denies leaking or bleeding. Continue with kick count twice a day. Discussed labor precautions and danger signs symptoms. Discussed PIH precautions. Increase fluids. Return a week OB check JOE Calculator Estimated Delivery Date Method Current WG Current Estimate 11/15/24 LMP (Certain) 37w 1d Other Estimates 11/08/24 Ultrasound #1 38w 1d 11/15/24 Ultrasound #2 37w 1d Notes Visit Date: 10/20/24 Last Updated by: Diana Sebastian CNM 39 yo OB Panel: O+,abs-, rpr;;nr, rub imm, hbsag-,hiv-, HC--, gc/ct-, UA-. GBS-, 1 hr gtt- LMP 02/09/24. EDC: 10/26/24 sono 06/19/24: 19w5. edc: 11/08/24 EFW 83% Visit Date: 10/12/24 Last Updated by: Diana Sebastian CNM GBS- Sono: 10/06/24: 34w2, 83% Visit Date: 08/25/24 Last Updated by: Diana Sebastian CNM 39 yo . sono 06/19/24: 19w5: edc 11/08/24. LMP 02/09/24. EDC 11/15/24. O+, abs-, rr;;nr, rub imm, HBSAG-,HIV-,HC-, UA:+ Ecoli, Office Procedures OB Clinic LOC & Office Proc's Nursing/Assessment Patient Status: Established Patient OB Clinic Nursing Assessment: Medication Reconciliation, Update PMH in EMR and Vital Signs OB Clinic Coordination of Care: AMA, Complex Care and Chronic Disease 1-5, Consent,records obtained, informed consent, Education Simp Pt/Fam, 1 Ins Authorization, Lab and Imaging orders, Results/Orders obtained and Staff clarify orders Special Needs: Heart tones Established Patient Charge Established Patient Point Assignment: 170 Established Patient Point Charge: EP Level 5 (160-above) Assessment & Plan Diagnosis / Problem List (1) Encounter for supervision of high risk in third trimester, antepartum: Status: Acute Plan Discussed labor precautions and danger signs symptoms. Discussed PIH precautions. kick counts twice a day. Increase fluids. Return a week OB check Additional Plan Follow Up: 1 Week (obc)
== END 2024-10-26 13:31 | disposition home or self-care (01) ==
LOC: HODSOBC 12:56
PROVIDERS: Supervising Provider Advanced Practice Midwife; Visit Provider Advanced Practice Midwife
DX: O09.513 Supervision of elderly primigravida, third trimester (principal); Z3A.37 37 weeks gestation of pregnancy
CPT/HCPCS: 99214; 99215; G0463

== ENCOUNTER 2024-11-03 13:54 | Outpatient (AMB) | payer MEDICAID, SELFPAY ==
[2024-11-03 14:16] VITALS: BP 147/84; PULSE 80; RESP 17; TEMP 36.5; O2SAT 98; BMI 28.2
--- NOTE | 2024-11-03 14:16 | OBCLNT_ITS ---
Vital Signs 11/03/24 14:16 Height 1.63 m Height Method Measured Weight 75.013 kg Weight Measurement Method Standing Scale BMI 28.2 BP 147/84 H Blood Pressure Source Automatic Cuff Blood Pressure Location Right Upper Arm Position Sitting Respiration 17 Pulse 80 Pulse Source Monitor Temp 97.7 F Temp Source Temporal Artery Scan Pulse Oximetry (%) 98 Oxygen Delivery Method Room Air Allergies/Home Meds Allergies & Medications Allergies No Known Allergies Allergy (Verified 11/03/24 15:50) Medication Reconciliation docusate sodium 100 mg capsule (Stool Softener) 100 mg PO QDAY 90 days #90 caps 09/17/24 [Rx Confirmed 11/03/24] ferrous sulfate 325 mg (65 mg iron) tablet 325 mg PO BID 90 days #180 tabs 09/17/24 [Rx Confirmed 11/03/24] ascorbic acid (vitamin C) 500 mg capsule 500 mg PO BID #60 caps 10/05/24 [Rx Confirmed 11/03/24] Intake Visit Data Collection New Patient or Established: Established Patient (seen at [facility] within 3 years) Reason for Visit:: OBC Consent obtained for Telemed Visit: No Seen by Clinical Staff ONLY (RN/MA): No Consulting Project Director Required: No Do You Feel Safe at Home: Yes Authorities Contacted: N/A PCP or OBGYN visit in last 3 months: Yes Date of Last PCP or OBGYN visit: 10/26/24 Hx Now: Yes Are you currently on any form of Control: No Pain scale:: 4 Smoking Status Smoking Status: Never smoker Questionnaires Covid-19 Vaccine Questionnaire Has patient been vacinated for Covid-19 Have you been vacinated for Covid-19: No PHQ-9 PHQ-2 Over the last 2 weeks, how often have you been bothered by any of the following problems? 1. Little interest or pleasure in doing things: not at all PHQ-9 8. Moving or speaking so slowly that other people could have noticed? - Or the opposite - being so fidgety or restless that you have been moving around a lot more than usual: not at all Source: Developed by Drs. Med Montes, Mariza Estevez, Carlos Enrique Gilman and colleagues, with an educational davon from [email or web address]. Social History Living Situation History Lives With: Family Housing: House Tobacco History Smoking Status: Never smoker Second Hand Smoke Exposure: No Alcohol History Alcohol Intake: Never Domestic Abuse History Do You Feel Safe at Home: Yes Care OB Visit Log OB Flowsheet Initial Weight: Not Recorded Date -?-?-?-?-?-?-?-?-?-?-?-?- EGA Weight BP Alb Glu CTX Pres Fundal ht FHR Mov Dilation Station Effacement Hx Notes Visit Note 07/28/24 -?-?-?-?-?-?-?-?-?-?-?-?- 24w 2d 65.544 kg 118/76 absent unknown 24 145 active 39 yo for OBI, limited OB care. sono in [place] 06/19/34. 19w5, edc 02/08/25. consistenet with LMP, no PMH,no social habit,no surgery. c/o nausea. denies PTL complaints. patient needs 1 hr gtt [place], today, ordered OB panel, NIPT and carrier screen, schedule MFM sono, discuss diet and weight, walk daily. RTC 4 week 08/25/24 -?-?-?-?-?-?-?-?-?-?-?-?- 28w 2d 66.395 kg 120/75 absent cephalic 29 145 active c/o dysuria and vag discharge, UA: + ECOLI. vagiana swollen, white curdy discharge.fetus active, no PTL complaints. MFM schedule for 10/16. patient going to [place] for vacation. no PTL complaints c/o dysuria and vag discharg e, UA: + ECOLI. vagiana swollen, white curdy dischar ge.fetus active, no PTL complaints. MFM schedule for 10/16. patient going to [place] for vacation. no PTL complaints. Increased nausea keep mfm appointment. patient declined TDAP today. increase fluid. comfort measure for vaginitis, Nuswab for vaginits and GC/CT. macrobid 100 bid x7, gynelotrimin x 7,PTL precaution, rtc 3 week keep mfm appointment. patien t declined TDAP today. increase fluid. comfort measure for vaginitis, Nuswab for vaginits and GC/CT. macrobid 100 bid x7, gynelotrimin x 7,PTL precaution, rtc 3 week start diclegesis bid 09/08/24 -?-?-?-?-?-?-?-?-?-?-?-?- 30w 2d 67.812 kg 105/65 absent cephalic 30 145 active MFM appointment 10/06, fetus active, nausea improved. denies ptl complaints, no VB,No LOF 3rd tri lab ordered, TDAP, discuss ptl precaution. fkc bid, hydrate. mfm appt 10/06, rtc 3 week 10/05/24 -?-?-?-?-?-?-?-?-?-?-?-?- 34w 1d 70.364 kg 130/78 absent cephalic 34 147 active f/u mfm appointment 10/06, discuss labor pr ecaution, fkc bid, GBS today. increase fluid. increase iron, start vitamin c with iron, high iron foodsrtc 1 week obc 10/12/24 -?-?-?-?-?-?-?-?-?-?-?-?- 35w 1d 70.534 kg 124/74 occasional cephalic 36 145 active She is active. Occasional contractions. Denies leaking or bleeding. Complains of some pressure. No other OB complaints Discussed GBS and ultrasound today. Reviewed kick count with patient twice a day. Increase fluids. Discussed labor precautions. Return week OB check 10/20/24 -?-?-?-?-?-?-?-?-?-?-?-?- 36w 2d 72.178 kg 128/77 occasional cephalic 36 145 active No OB complaints. Denies leaking or bleeding. Reports good movement. Denies PIH complaints Continue k ick count twice a day. Discussed labor precautions and ER precautions. Return week OB check 10/26/24 -?-?-?-?-?-?-?-?-?-?-?-?- 37w 1d 73.198 kg 138/80 occasional cephalic 37 145 active No OB complaints. Reports good movement. Increased pressure. Denies leaking or bleeding. Continue with kick count twice a day. Discussed labor precautions and danger signs symptoms. Discussed PIH precautions. Increase fluids. Return a week OB check 11/03/24 -?-?-?-?-?-?-?-?-?-?-?-?- 38w 2d 75.013 kg 147/84 occasional cephalic 38 145 active 0.50 -2 70 CX: mid,FTP,70/-2, medium. fetus active, increased uc. mucus with blood. increased uc and pressure. fetus active, no leaking. denies PIH complaints discuss PIH complaints. discuss labor precaution, discuaa PIH s/s and ER precaution, fkc bid. to [facility] for labor eval and PIH w/u. rtc 1 week JOE Calculator Estimated Delivery Date Method Current WG Current Estimate 11/15/24 LMP (Certain) 38w 2d Other Estimates 11/08/24 Ultrasound #1 39w 2d 11/15/24 Ultrasound #2 38w 2d Notes Visit Date: 11/03/24 Last Updated by: Diana Sebastian CNM DATES: lmp: 02/09/24. EDC: 11/15/24. 1st sono: 06/19/24:iup: 19w5. EDC: 11/08/24. sono: 10/06/24: 34w2. EDC: 11/15/24 Visit Date: 10/20/24 Last Updated by: Diana Sebastian CNM 39 yo OB Panel: O+,abs-, rpr;;nr, rub imm, hbsag-,hiv-, HC--, gc/ct-, UA-. GBS-, 1 hr gtt- LMP 02/09/24. EDC: 10/26/24 sono 06/19/24: 19w5. edc: 11/08/24 EFW 83% Visit Date: 10/12/24 Last Updated by: Diana Sebastian CNM GBS- Sono: 10/06/24: 34w2, 83% Visit Date: 08/25/24 Last Updated by: Diana Sebastian CNM 39 yo . sono 06/19/24: 19w5: edc 11/08/24. LMP 02/09/24. EDC 11/15/24. O+, abs-, rr;;nr, rub imm, HBSAG-,HIV-,HC-, UA:+ Ecoli, Office Procedures OB Clinic LOC & Office Proc's Nursing/Assessment Patient Status: Established Patient OB Clinic Nursing Assessment: Medication Reconciliation, Update PMH in EMR and Vital Signs OB Clinic Coordination of Care: Complex Care and Chronic Disease 1-5, Consent,records obtained, informed consent, Education Simp Pt/Fam and Results/Orders obtained Special Needs: Heart tones Miscellaneous Interventions: Blood/Urine Collection Established Patient Charge Established Patient Point Assignment: 140 Established Patient Point Charge: EP Level 3 (80-115) Assessment & Plan Diagnosis / Problem List (1) Encounter for supervision of high risk in third trimester, antepartum: Status: Acute Plan Discussed labor precautions and PIH precautions. Discussed signs symptoms PIH. Discussed kick count twice a day. Patient sent to labor and delivery for labor eval and PIH workup. Return on Saturday for OB check. Additional Plan Follow Up: 6 Days (OBC)
== END 2024-11-03 14:28 | disposition home or self-care (01) ==
LOC: HODSOBC 13:54
PROVIDERS: Supervising Provider Advanced Practice Midwife; Visit Provider Advanced Practice Midwife
DX: O09.513 Supervision of elderly primigravida, third trimester (principal); Z3A.38 38 weeks gestation of pregnancy
CPT/HCPCS: 99213; G0463

== ENCOUNTER 2024-11-03 14:47 | Inpatient (IN) | payer MEDICAID, SELFPAY ==
[2024-11-03] VITALS (50 sets, daily range): BP systolic 91–173; BP diastolic 51–85; PULSE 47–90; RESP 16–100; TEMP 36.7–37.1; O2SAT 96–100; BMI 28.3; BMI 28.1
--- NOTE | 2024-11-03 14:57 | XR_ITS ---
Examination: Complete OB ultrasound greater than 14 weeks Date and time of exam: November 03, 2024 1611 hours INDICATIONS: Diagnosis advanced maternal age Findings: Viable intrauterine single fetus with single amniotic sac presentation cephalic Cardiac motion 140 BPM Placenta posterior grade 2 Umbilical cord insertion 3 vessel seen Amniotic fluid index 11.8 cm spine maternal right Cervix 3.7 cm Ovaries obscured by bowel gas. Composite estimated gestational age based on BPD, head circumference, abdominal circumference, femur length is 38 weeks 2 days Estimated weight 3502 g. Survey of intracranial anatomy, spinal anatomy, abdominal anatomy, four-chamber heart performed with no abnormalities identified. Impression: Viable intrauterine gestation cephalic presentation.
--- NOTE | 2024-11-03 14:57 | XR_ITS ---
Examination: Biophysical profile, ultrasound Date and time of exam: November 03, 2024 1646 hours INDICATIONS: Diagnosis advanced maternal age Technique: Multiple transabdominal sonographic images of the pelvis abdomen obtained. Attention is directed to the breathing movement, gross body movement, amniotic fluid volume and tone. Findings: Amniotic fluid index 11.5 cm Total biophysical profile is 8 of 8. breathing movement is 2. Gross body movement is 2. tone is 2. Qualitative amniotic fluid volume is 2 Impression: Biophysical profile is 8 of 8.
[2024-11-03 15:58] LABS: Basophils # (Auto) 0.0 Thou/mm3 (0.0-0.2); Basophils % (Auto) 0 % (0-2.5); Eosinophils # (Auto) 0.0 Thou/mm3 (0.0-0.5); Eosinophils % (Auto) 0 % (0-10); Hematocrit 29.9 % (36.0-46.0); Hemoglobin 10.1 g/dL (12.0-16.0); Immature Granulocytes Auto 0.03 Thou/mm3 (0.00-0.00); Lymphocytes # (Auto) 0.5 Thou/mm3 (1.0-4.8); Lymphocytes % (Auto) 11 % (10-50); Mean Corpuscular HGB Conc 33.8 g/dl (31.0-37.0); Mean Corpuscular Hemoglobin 33.7 pg (25.0-35.0); Mean Corpuscular Volume 100 fL (80-100); Monocytes # (Auto) 0.4 Thou/mm3 (0.0-0.8); Monocytes % (Auto) 9 % (0-12); Neutrophils # (Auto) 3.3 Thou/mm3 (1.8-7.7); Neutrophils % (Auto) 79 % (37-80); Nucleated Red Blood Cell # 0.00 Thou/mm3 (0.00-0.00); Nucleated Red Blood Cell % 0 /100 WBC (0); Platelet Count 131 Thou/mm3 (140-440); RDW Standard Deviation 50.4 fL (36.4-46.3); Red Blood Count 3.00 Miln/mm3 (4.00-5.20); White Blood Count 4.2 Thou/mm3 (3.6-11.0)
[2024-11-03 16:32] LABS: Fibrinogen 346 mg/dL (175-375); INR 0.9 (0.9-1.3); Partial Thromboplastin Time 25.4 Seconds (22.0-36.0); Prothrombin Time 10.1 Seconds (9.0-12.2)
[2024-11-03 17:13] LABS: Collection Type, Urine Clean Catch
[2024-11-03 17:44] LABS: Bacteria,Urine 2+; Bilirubin,Urine Negative (Negative); Blood,Urine Negative (Negative); Clarity,Urine Clear (Clear/Hazy); Color,Urine Colorless (Lt Yel-Yel); Glucose, Urine Negative (Negative); Ketones,Urine Negative (Negative); Leukocyte Esterase,Urine Positive (Negative); Nitrite,Urine Negative (Negative); PH,Urine 7.0 (5.0-7.0); Protein,Urine Negative (Neg - Trace); RBC,Urine 2 /hpf (0-3); Specific Gravity,Urine 1.010 (1.001-1.035); Squamous Epithelial Cell,Urine 1 /hpf (0-5); Urobilinogen,Urine Negative mg/dL (0.0-1.0); WBC,Urine 3 /hpf (0-5)
[2024-11-03 17:46] LABS: Creatinine,Random Urine 37 mg/dL (30-125); Protein Total, Random Urine 8 mg/dL (1-14)
[2024-11-03 18:06] LABS: Alanine Aminotransferase 41 U/L (10-49); Albumin, Serum 3.4 gm/dL (3.5-5.0); Albumin/Globulin Ratio 1.8 (1.2-2.2); Alkaline Phosphatase 226 U/L (46-116); Anion Gap 9 (7-16); Aspartate Amino Transferase 49 U/L (0-34); BUN/Creatinine Ratio 22 Ratio (12-20); Bilirubin,Total 0.3 mg/dL (0.3-1.2); Blood Urea Nitrogen 11 mg/dL (9-23); Calcium 8.3 mg/dL (8.3-10.6); Calcium (Corrected) 8.8 mg/dL (8.5-10.1); Carbon Dioxide 22.6 mMol/L (20.0-31.0); Chloride 110 mMol/L (98-107); Creatinine (Component) 0.5 mg/dL (0.6-1.3); Estimated Creatinine Clearance 151.1 mL/min (>60); Globulin 1.9 gm/dL (2.3-3.5); Glucose 75 mg/dL (74-106); LDH (Lactate Dehydrogenase) 278 U/L (120-246); Osmolality,Calculated 281 (275-295); Potassium 4.5 mMol/L (3.4-5.1); Sodium 142 mMol/L (136-145); Total Protein 5.3 gm/dL (5.7-8.2); Uric Acid 2.5 mg/dL (3.1-7.8); eGFR > 60 See Note
[2024-11-03 20:23] LABS: Basophils # (Auto) 0.0 Thou/mm3 (0.0-0.2); Basophils % (Auto) 0 % (0-2.5); Eosinophils # (Auto) 0.0 Thou/mm3 (0.0-0.5); Eosinophils % (Auto) 0 % (0-10); Hematocrit 31.6 % (36.0-46.0); Hemoglobin 10.7 g/dL (12.0-16.0); Immature Granulocytes Auto 0.03 Thou/mm3 (0.00-0.00); Lymphocytes # (Auto) 0.6 Thou/mm3 (1.0-4.8); Lymphocytes % (Auto) 12 % (10-50); Mean Corpuscular HGB Conc 33.9 g/dl (31.0-37.0); Mean Corpuscular Hemoglobin 33.3 pg (25.0-35.0); Mean Corpuscular Volume 98 fL (80-100); Monocytes # (Auto) 0.3 Thou/mm3 (0.0-0.8); Monocytes % (Auto) 7 % (0-12); Neutrophils # (Auto) 3.8 Thou/mm3 (1.8-7.7); Neutrophils % (Auto) 80 % (37-80); Nucleated Red Blood Cell # 0.00 Thou/mm3 (0.00-0.00); Nucleated Red Blood Cell % 0 /100 WBC (0); Platelet Count 134 Thou/mm3 (140-440); RDW Standard Deviation 49.4 fL (36.4-46.3); Red Blood Count 3.21 Miln/mm3 (4.00-5.20); White Blood Count 4.8 Thou/mm3 (3.6-11.0)
[2024-11-03 20:50] LABS: Syphilis Nonreactive (Nonreactive)
[2024-11-04] VITALS (72 sets, daily range): BP systolic 108–188; BP diastolic 52–85; PULSE 48–78; RESP 16–18; TEMP 36.7–37; O2SAT 92–99
[2024-11-04] MEDS: RINGERS LACTATED 1000 ML 1,000 ML 100 ML IV ×2 (03:32→18:24)
[2024-11-04 06:17] LABS: Basophils # (Auto) 0.0 Thou/mm3 (0.0-0.2); Basophils % (Auto) 0 % (0-2.5); Eosinophils # (Auto) 0.0 Thou/mm3 (0.0-0.5); Eosinophils % (Auto) 1 % (0-10); Hematocrit 29.7 % (36.0-46.0); Hemoglobin 10.2 g/dL (12.0-16.0); Immature Granulocytes Auto 0.03 Thou/mm3 (0.00-0.00); Lymphocytes # (Auto) 0.6 Thou/mm3 (1.0-4.8); Lymphocytes % (Auto) 12 % (10-50); Mean Corpuscular HGB Conc 34.3 g/dl (31.0-37.0); Mean Corpuscular Hemoglobin 33.8 pg (25.0-35.0); Mean Corpuscular Volume 98 fL (80-100); Monocytes # (Auto) 0.5 Thou/mm3 (0.0-0.8); Monocytes % (Auto) 9 % (0-12); Neutrophils # (Auto) 4.1 Thou/mm3 (1.8-7.7); Neutrophils % (Auto) 78 % (37-80); Nucleated Red Blood Cell # 0.00 Thou/mm3 (0.00-0.00); Nucleated Red Blood Cell % 0 /100 WBC (0); Platelet Count 118 Thou/mm3 (140-440); RDW Standard Deviation 49.5 fL (36.4-46.3); Red Blood Count 3.02 Miln/mm3 (4.00-5.20); White Blood Count 5.2 Thou/mm3 (3.6-11.0)
[2024-11-04 06:59] LABS: Alanine Aminotransferase 36 U/L (10-49); Albumin, Serum 3.3 gm/dL (3.5-5.0); Albumin/Globulin Ratio 1.7 (1.2-2.2); Alkaline Phosphatase 210 U/L (46-116); Anion Gap 13 (7-16); Aspartate Amino Transferase 45 U/L (0-34); BUN/Creatinine Ratio 14 Ratio (12-20); Bilirubin,Total 0.4 mg/dL (0.3-1.2); Blood Urea Nitrogen 7 mg/dL (9-23); Carbon Dioxide 20.3 mMol/L (20.0-31.0); Chloride 109 mMol/L (98-107); Creatinine (Component) 0.5 mg/dL (0.6-1.3); Estimated Creatinine Clearance 151.1 mL/min (>60); Globulin 2.0 gm/dL (2.3-3.5); Glucose 72 mg/dL (74-106); LDH (Lactate Dehydrogenase) 253 U/L (120-246); Osmolality,Calculated 280 (275-295); Potassium 3.6 mMol/L (3.4-5.1); Sodium 142 mMol/L (136-145); Total Protein 5.3 gm/dL (5.7-8.2); eGFR > 60 See Note
[2024-11-04 07:07] LABS: Calcium 8.7 mg/dL (8.3-10.6); Calcium (Corrected) 9.3 mg/dL (8.5-10.1)
[2024-11-04 07:37] LABS: Glucose Estimated Average 108 mg/dL (80-131); Hemoglobin A1C 5.4 % Hgb (4.8-6.0)
--- NOTE | 2024-11-04 08:08 | ESPR_ITS ---
Documentation for date of: 11/04/24 OB Labor Progress Note Pain Control Pain control: tolerating well Comments: Patient is 39-year-old at term [facility] patient. She was induced secondary to elevated blood pressures. Her blood pressures been fine. She has had Cytotec 50 mcg orally x 3. She was just examined approximately 7:30 in the morning by the RN and is 260-1. She thinks she does not want epidural but will take IV pain meds. Plan will be for me to recheck her at lunchtime. I did not examine the patient today just met her. She is Armenian-speaking only. Baby is vertex 3200 g on ultrasound on admission. Pelvic Exam Dilation (cm): 2 Effacement (%): 60 station: -1 Amniotic membrane status: Intact Contractions Monitor mode: External Contraction frequency: 3-6 Contraction pattern: Coupling Contraction intensity: Mild Status status: Category l Assessment and Plan Assessment: induction ongoing Plan OB labor note: continuous present management Comments: Patient is already had 3 oral Cytotec's 50 mcg each. Last 1 was given this morning. I will examine the patient at lunchtime probably perform an AROM and Pitocin.
--- NOTE | 2024-11-04 12:45 | ESPR_ITS ---
Documentation for date of: 11/04/24 OB Labor Progress Note Pain Control Comments: Patient's breathing through contractions but denies needing pain medications. She does not want an epidural. Pelvic Exam Dilation (cm): 3 Effacement (%): 80 station: -1 Amniotic membrane status: Intact Comments: Patient might be leaking. AmniSure ordered. Contractions Monitor mode: External Contraction frequency: 4 Contraction intensity: Moderate Status status: Category l Assessment and Plan Assessment: induction ongoing Comments: Patient just had her fourth Cytotec 50 mcg p.o. I just examined the patient at 1230 she is 3/80/-1. The plan will be to recheck her about 430 and performing AROM at that point we might need Pitocin augmentation. This was explained to the patient and her through a cleaner assistant, MARIZA Richardson. Patient is adamant that she does not want an epidural. She states she might take IV pain meds. She is holding her cell quite tight during exams. Her platelets are 118. 2 IV lines have been started. Hemoglobin 10.7.
[2024-11-04 13:21] LABS: ROM Kit Lot # 58102387
[2024-11-04 13:22] LABS: ROM Swab Mixed By: LEDEM4; Rupture of Fetal Membranes Positive (Negative); Swb Mxed in Solvent 1 min? Yes
--- NOTE | 2024-11-04 14:49 | ESHP_ITS ---
Documentation for date of: 11/04/24 OB Labor/Induct. HPI History of Present Illness Chief complaint: Elevated blood pressures : 1 Para: 0 Term pregnancies: 0 pregnancies: 0 Living children: 0 History of Abortions: Spontaneous and Elective: 0 History of Vaginal deliveries: 0 History of sections: No History of : No JOE: 11/08/24 History of present illness: 39-year-old 1 para 0 at 39 weeks and 3 days was sent in from the office by her CNM due to elevated mild range blood pressures. Patient was evaluated on L&D where she was noted to have a series of mild range blood pressures in the upper 140s and 150s over 80s. Patient denies any signs, epigastric or right upper quadrant pain. She is advanced maternal age. On lab testing to rule out preeclampsia she is noted to have elevated transaminases there is also a significant drop in the platelet count compared to her baseline earlier in . Patient denies any contractions or leakage of fluid and reports good movements. History of Present Adequate Care: Yes Labs Labs: Positive: Rubella Titre, Negative: RPR, Hepatitis B, HIV, Chlamydia, Gonorrhea and Group Beta Strep and Unknown: Herpes Type 1, Herpes Type 2 and Covid-19 Past Medical History Surgical History SURGICAL: Negative Section Meds Home Medications and Allergies Allergies Allergy/AdvReac Type Severity Reaction Status Date / Time No Known Allergies Allergy Verified 11/03/24 15:50 OB Exam Physical Exam Vital signs: Temp Pulse Resp BP Pulse Ox O2 Del Method 98.0 F 55 L 18 129/66 99 Room Air 11/04/24 07:00 11/04/24 14:44 11/04/24 07:00 11/04/24 14:44 11/03/24 18:22 11/03/24 14:48 Constitutional Constitutional: no acute distress Routine HEENT Exam Head: Present normocephalic and atraumatic Eye: Present EOMI and PERRL ENT: Present mucous membranes moist Routine Neck Exam Neck: Present supple and trachea midline Routine Cardiovascular Exam Cardiovascular: Present RRR Routine Abdominal Exam Abdominal: Present soft and normoactive bowel sounds Detailed Labor and Delivery Exam Dilation (cm): 0 Effacement (%): 50 Cervix position: posterior station: -4 Consistency: firm Presentation: Vertex Baseline heart rate: 145 monitor accelerations: 15x15 monitor decelerations: None Routine Extremities Exam Extremities: Present full ROM Routine Skin Exam Skin: Present intact, dry and warm Routine Neurological Exam Neurological: Present alert, oriented X3 and CN II-XII intact Routine Psychiatric Exam Psychiatric: Present normal affect and normal thought process OB Results Labs 11/04/24 05:18 11/04/24 05:18 Labs: Short CBC 11/03/24 11/03/24 11/04/24 Range/Units 15:07 19:30 05:18 WBC 4.2 4.8 5.2 (3.6-11.0) Thou/mm3 Hgb 10.1 L 10.7 L 10.2 L (12.0-16.0) g/dL Hct 29.9 L 31.6 L 29.7 L (36.0-46.0) % Plt Count 131 L 134 L 118 L (140-440) Thou/mm3 BMP 11/03/24 11/04/24 15:07 05:18 Sodium 142 142 Potassium 4.5 3.6 D Chloride 110 H 109 H Carbon Dioxide 22.6 20.3 BUN 11 7 L Creatinine 0.5 L 0.5 L Glucose 75 72 L Calcium 8.3 8.7 Liver Function 11/03/24 11/04/24 Range/Units 15:07 05:18 Total Bilirubin 0.3 0.4 (0.3-1.2) mg/dL AST 49 H 45 H (0-34) U/L ALT 41 36 (10-49) U/L Alkaline Phosphatase 226 H 210 H (46-116) U/L Albumin 3.4 L 3.3 L (3.5-5.0) gm/dL Urine 11/03/24 Range/Units 16:10 Urine Color Colorless A (Lt Yel-Yel) Urine Clarity Clear (Clear/Hazy) Urine pH 7.0 (5.0-7.0) Ur Specific [place] 1.010 (1.001-1.035) Urine Protein Negative (Neg - Trace) Urine Glucose (UA) Negative (Negative) OB Assessment & Plan Assessment and Plan (1) Encounter for supervision of high risk in third trimester, antepartum: Status: Acute (2) Gestational hypertension: Status: Acute Assessment and plan: Admit to inpatient status for induction of labor IV access, LR at 125 cc/h, monitor for signs of preeclampsia Cervical ripening with misoprostol, will proceed to oxytocin when Austin score is favorable Continuous maternal monitoring Epidural when desired, pain management as per L&D protocol Repeat preeclampsia panel in the morning to monitor liver enzymes Patient aware that she may need to go back for urgent at any time if blood pressures worsened or she developed any signs of severe preeclampsia (3) Elevated liver transaminase level: Status: Acute
[2024-11-04] MEDS: OXYTOCIN in NS 30 units 30 UNIT/500 ML BAG IV (17:53)
[2024-11-04 20:00] LABS: Basophils # (Auto) 0.0 Thou/mm3 (0.0-0.2); Basophils % (Auto) 0 % (0-2.5); Eosinophils # (Auto) 0.0 Thou/mm3 (0.0-0.5); Eosinophils % (Auto) 0 % (0-10); Hematocrit 30.4 % (36.0-46.0); Hemoglobin 10.3 g/dL (12.0-16.0); Immature Granulocytes Auto 0.03 Thou/mm3 (0.00-0.00); Lymphocytes # (Auto) 0.6 Thou/mm3 (1.0-4.8); Lymphocytes % (Auto) 10 % (10-50); Mean Corpuscular HGB Conc 33.9 g/dl (31.0-37.0); Mean Corpuscular Hemoglobin 33.4 pg (25.0-35.0); Mean Corpuscular Volume 99 fL (80-100); Monocytes # (Auto) 0.6 Thou/mm3 (0.0-0.8); Monocytes % (Auto) 9 % (0-12); Neutrophils # (Auto) 5.1 Thou/mm3 (1.8-7.7); Neutrophils % (Auto) 81 % (37-80); Nucleated Red Blood Cell # 0.00 Thou/mm3 (0.00-0.00); Nucleated Red Blood Cell % 0 /100 WBC (0); Platelet Count 108 Thou/mm3 (140-440); RDW Standard Deviation 49.6 fL (36.4-46.3); Red Blood Count 3.08 Miln/mm3 (4.00-5.20); White Blood Count 6.4 Thou/mm3 (3.6-11.0)
[2024-11-04 20:11] LABS: Fibrinogen 379 mg/dL (175-375); INR 0.9 (0.9-1.3); Partial Thromboplastin Time 26.2 Seconds (22.0-36.0); Prothrombin Time 10.3 Seconds (9.0-12.2)
[2024-11-04 21:10] LABS: Alanine Aminotransferase 37 U/L (10-49); Albumin, Serum 3.7 gm/dL (3.5-5.0); Albumin/Globulin Ratio 1.8 (1.2-2.2); Alkaline Phosphatase 217 U/L (46-116); Anion Gap 12 (7-16); Aspartate Amino Transferase 46 U/L (0-34); BUN/Creatinine Ratio 10 Ratio (12-20); Bilirubin,Total 0.5 mg/dL (0.3-1.2); Blood Urea Nitrogen < 5 mg/dL (9-23); Calcium 9.0 mg/dL (8.3-10.6); Calcium (Corrected) 9.2 mg/dL (8.5-10.1); Carbon Dioxide 19.4 mMol/L (20.0-31.0); Chloride 111 mMol/L (98-107); Creatinine (Component) 0.5 mg/dL (0.6-1.3); Estimated Creatinine Clearance 151.1 mL/min (>60); Globulin 2.1 gm/dL (2.3-3.5); Glucose 80 mg/dL (74-106); Osmolality,Calculated 279 (275-295); Potassium 3.5 mMol/L (3.4-5.1); Sodium 142 mMol/L (136-145); Total Protein 5.8 gm/dL (5.7-8.2); eGFR > 60 See Note
[2024-11-05] VITALS (219 sets, daily range): BP systolic 81–167; BP diastolic 53–107; PULSE 1–135; RESP 14–18; TEMP 36.7–39; O2SAT 84–100
[2024-11-05] MEDS: OXYTOCIN in NS 30 units 30 UNIT/500 ML BAG 4 UNIT IV
[2024-11-05] MEDS: RINGERS LACTATED 1000 ML 1,000 ML 100 ML IV (06:30)
[2024-11-05 06:36] LABS: Basophils # (Auto) 0.0 Thou/mm3 (0.0-0.2); Basophils % (Auto) 0 % (0-2.5); Eosinophils # (Auto) 0.0 Thou/mm3 (0.0-0.5); Eosinophils % (Auto) 0 % (0-10); Hematocrit 30.2 % (36.0-46.0); Hemoglobin 10.2 g/dL (12.0-16.0); Immature Granulocytes Auto 0.04 Thou/mm3 (0.00-0.00); Lymphocytes # (Auto) 0.5 Thou/mm3 (1.0-4.8); Lymphocytes % (Auto) 6 % (10-50); Mean Corpuscular HGB Conc 33.8 g/dl (31.0-37.0); Mean Corpuscular Hemoglobin 33.4 pg (25.0-35.0); Mean Corpuscular Volume 99 fL (80-100); Monocytes # (Auto) 0.4 Thou/mm3 (0.0-0.8); Monocytes % (Auto) 6 % (0-12); Neutrophils # (Auto) 6.5 Thou/mm3 (1.8-7.7); Neutrophils % (Auto) 88 % (37-80); Nucleated Red Blood Cell # 0.00 Thou/mm3 (0.00-0.00); Nucleated Red Blood Cell % 0 /100 WBC (0); Platelet Count 113 Thou/mm3 (140-440); RDW Standard Deviation 49.7 fL (36.4-46.3); Red Blood Count 3.05 Miln/mm3 (4.00-5.20); White Blood Count 7.4 Thou/mm3 (3.6-11.0)
[2024-11-05 06:55] LABS: Fibrinogen 371 mg/dL (175-375); INR 0.9 (0.9-1.3); Partial Thromboplastin Time 26.3 Seconds (22.0-36.0); Prothrombin Time 10.3 Seconds (9.0-12.2)
[2024-11-05] MEDS: OXYTOCIN in NS 20 units 20 UNIT/1,000 ML BAG 999 UNIT IV (07:50)
[2024-11-05] MEDS: OXYTOCIN INJ 10 UNIT/ML VIAL IM (07:51)
[2024-11-05] MEDS: LIDOCAINE HCL 1% 20 ML VIAL INFL (07:58)
[2024-11-05] MEDS: TRANEXAMIC ACID 1,000 MG IVPB 1,000 MG/100 ML BAG 200 MG IV ×2 (08:20→16:11)
--- NOTE | 2024-11-05 08:28 | XR_ITS ---
Examination: AP chest single view Technique one AP portable semiupright chest single view Date and time: November 05, 2024 0853 hours INDICATIONS: Sepsis alert, today, fever today FINDINGS: Normal heart size Mild opacity at the left base obscuring detail left hemidiaphragm Right lung clear No pulmonary edema IMPRESSION: Suspicious for early pneumonia left base
[2024-11-05] MEDS: ceFAZolin/D5W 2 GM IV 2 GM/100 ML BAG IV (08:35)
[2024-11-05] MEDS: ACETAMINOPHEN IVPB 1,000 MG/100 ML VIAL 250 MG IV ×3 (09:11→20:36)
[2024-11-05 09:44] LABS: Lactate (Lactic Acid) 3.8 mMol/L (0.4-2.0)
[2024-11-05 09:55] LABS: Basophils # (Auto) 0.0 Thou/mm3 (0.0-0.2); Basophils % (Auto) 0 % (0-2.5); Eosinophils # (Auto) 0.0 Thou/mm3 (0.0-0.5); Eosinophils % (Auto) 0 % (0-10); Hematocrit 24.6 % (36.0-46.0); Immature Granulocytes Auto 0.06 Thou/mm3 (0.00-0.00); Lymphocytes # (Auto) 0.4 Thou/mm3 (1.0-4.8); Lymphocytes % (Auto) 4 % (10-50); Mean Corpuscular HGB Conc 34.1 g/dl (31.0-37.0); Mean Corpuscular Hemoglobin 34.3 pg (25.0-35.0); Mean Corpuscular Volume 100 fL (80-100); Monocytes # (Auto) 0.7 Thou/mm3 (0.0-0.8); Monocytes % (Auto) 7 % (0-12); Neutrophils # (Auto) 9.9 Thou/mm3 (1.8-7.7); Neutrophils % (Auto) 89 % (37-80); Nucleated Red Blood Cell # 0.00 Thou/mm3 (0.00-0.00); Nucleated Red Blood Cell % 0 /100 WBC (0); Platelet Count 102 Thou/mm3 (140-440); RDW Standard Deviation 50.2 fL (36.4-46.3); Red Blood Count 2.45 Miln/mm3 (4.00-5.20); White Blood Count 11.1 Thou/mm3 (3.6-11.0)
[2024-11-05 10:08] LABS: Hemoglobin 8.4 g/dL (12.0-16.0)
[2024-11-05 10:09] LABS: Alanine Aminotransferase 32 U/L (10-49); Albumin, Serum 3.4 gm/dL (3.5-5.0); Albumin/Globulin Ratio 1.7 (1.2-2.2); Alkaline Phosphatase 207 U/L (46-116); Anion Gap 13 (7-16); Aspartate Amino Transferase 42 U/L (0-34); BUN/Creatinine Ratio 10 Ratio (12-20); Bilirubin,Total 0.5 mg/dL (0.3-1.2); Blood Urea Nitrogen 6 mg/dL (9-23); Calcium 8.6 mg/dL (8.3-10.6); Calcium (Corrected) 9.1 mg/dL (8.5-10.1); Carbon Dioxide 20.5 mMol/L (20.0-31.0); Chloride 110 mMol/L (98-107); Creatinine (Component) 0.6 mg/dL (0.6-1.3); Estimated Creatinine Clearance 126.0 mL/min (>60); Globulin 2.0 gm/dL (2.3-3.5); Glucose 70 mg/dL (74-106); Osmolality,Calculated 280 (275-295); Potassium 3.5 mMol/L (3.4-5.1); Sodium 143 mMol/L (136-145); Total Protein 5.4 gm/dL (5.7-8.2); eGFR > 60 See Note
[2024-11-05 10:11] LABS: B-Type Natriuretic Peptide 478 pg/mL (0-100)
[2024-11-05 10:21] LABS: Alanine Aminotransferase 29 U/L (10-49); Albumin, Serum 2.8 gm/dL (3.5-5.0); Albumin/Globulin Ratio 1.8 (1.2-2.2); Alkaline Phosphatase 163 U/L (46-116); Anion Gap 12 (7-16); Aspartate Amino Transferase 48 U/L (0-34); BUN/Creatinine Ratio 12 Ratio (12-20); Bilirubin,Total 0.5 mg/dL (0.3-1.2); Blood Urea Nitrogen 7 mg/dL (9-23); Calcium 7.7 mg/dL (8.3-10.6); Calcium (Corrected) 8.7 mg/dL (8.5-10.1); Carbon Dioxide 18.6 mMol/L (20.0-31.0); Chloride 110 mMol/L (98-107); Creatinine (Component) 0.6 mg/dL (0.6-1.3); Estimated Creatinine Clearance 126.0 mL/min (>60); Globulin 1.6 gm/dL (2.3-3.5); Glucose 89 mg/dL (74-106); Osmolality,Calculated 278 (275-295); Potassium 3.4 mMol/L (3.4-5.1); Sodium 141 mMol/L (136-145); Total Protein 4.4 gm/dL (5.7-8.2); Troponin I 0.021 ng/mL (0.0-0.045); eGFR > 60 See Note
[2024-11-05 10:23] LABS: INR 1.0 (0.9-1.3); Partial Thromboplastin Time 25.8 Seconds (22.0-36.0); Prothrombin Time 11.0 Seconds (9.0-12.2)
[2024-11-05] MEDS: PIPER/TAZO 3.375 GM PREMIX 3.375 GM/50 ML BAG IV ×2 (10:32→22:12)
[2024-11-05] MEDS: IBUPROFEN TAB 400 MG TABLET 800 MG PO (10:33)
[2024-11-05 11:04] LABS: Collection Type, Urine Catheter
[2024-11-05 11:17] LABS: Bacteria,Urine Rare; Bilirubin,Urine Negative (Negative); Blood,Urine 3+ (Negative); Clarity,Urine Turbid (Clear/Hazy); Color,Urine Lt-Brown (Lt Yel-Yel); Glucose, Urine Negative (Negative); Hyaline Casts,Urine < 1 /hpf (0-1); Ketones,Urine 1+ (Negative); Leukocyte Esterase,Urine Positive (Negative); Nitrite,Urine Negative (Negative); PH,Urine 7.5 (5.0-7.0); Protein,Urine Trace (Neg - Trace); RBC,Urine 486 /hpf (0-3); Specific Gravity,Urine 1.012 (1.001-1.035); Squamous Epithelial Cell,Urine < 1 /hpf (0-5); Urobilinogen,Urine Negative mg/dL (0.0-1.0); WBC,Urine 37 /hpf (0-5)
[2024-11-05 12:44] LABS: Reflex Lactate? Y
[2024-11-05 13:10] LABS: Uric Acid 4.0 mg/dL (3.1-7.8)
[2024-11-05 13:11] LABS: Uric Acid 3.5 mg/dL (3.1-7.8)
[2024-11-05 13:19] LABS: Lactate (Lactic Acid) 1.1 mMol/L (0.4-2.0)
--- NOTE | 2024-11-05 19:08 | OBDSUM_ITS ---
Data (Garcia) Data Hx Section: No : 1 Term: 0 : 0 Livin Abortions: Spontaneous & Theraputic: 0 Delivery Data (Garcia) Labor Data Initiation of labor: Induction Induction/Augmentation Agent: Cytotec-PO and Pitocin ROM date: 11/04/24 ROM time: 12:50 Amniotic membrane rupture type: Spontaneous Amniotic fluid description: Clear Delivery Data Onset of labor date: 11/04/24 Onset of labor time: 18:00 Complete dilation date: 11/05/24 Complete dilation time: 07:12 delivery date: 11/05/24 [place] delivery time: 07:48 Placenta delivery date: 11/05/24 Placenta delivery time: 07:50 Stage 1 total time: Labor - Stage 1 Duration 13 hours and 12 minutes Delivered by: Fabian Huff Delivery nurse: Key Contreras nurse: Obdulia DAWKINS Support person(s) at delivery: LAITH Other staff at delivery: Rabia DAWKINSdeputy district customs director Method Delivery method: Operative Vaginal Delivery Presentation: Vertex Anesthesia Type Anesthesia Type: Local and Epidural Placenta Placenta delivery description: Spontaneous Cord blood sent to lab: Yes cord blood collection: Cord Blood Type Episiotomy Episiotomy description: Right Mediolateral Umbilical Cord cord description: 3 Vessels [place] Data (Garcia) Data order: 1 [place]'s gender: Male Identification band number: [id number] weight (gms): 3570 g Weight (pounds): 7 lbs and 13.9 ozs [place] length: 50.5 cm 1 minute: 9 5 minutes: 9
--- NOTE | 2024-11-05 20:31 | PC.NURSE ---
11/05/24 @ 1930 - DR KAY HERE AT BEDSIDE TO REMOVE BAKRI BALLON AND LONGORIA CATHETER, PATEINT TOLERATED WELL.
[2024-11-06] VITALS (13 sets, daily range): BP systolic 101–127; BP diastolic 62–75; PULSE 62–81; RESP 16–18; TEMP 36.4–37.7; O2SAT 95–99
[2024-11-06] MEDS: TRANEXAMIC ACID 1,000 MG IVPB 1,000 MG/100 ML BAG 200 MG IV (00:16)
[2024-11-06] MEDS: ACETAMINOPHEN IVPB 1,000 MG/100 ML VIAL 250 MG IV (02:33)
[2024-11-06 04:51] LABS: Basophils # (Auto) 0.0 Thou/mm3 (0.0-0.2); Basophils % (Auto) 0 % (0-2.5); Eosinophils # (Auto) 0.0 Thou/mm3 (0.0-0.5); Eosinophils % (Auto) 0 % (0-10); Immature Granulocytes Auto 0.03 Thou/mm3 (0.00-0.00); Lymphocytes # (Auto) 0.6 Thou/mm3 (1.0-4.8); Lymphocytes % (Auto) 6 % (10-50); Mean Corpuscular HGB Conc 34.4 g/dl (31.0-37.0); Mean Corpuscular Hemoglobin 33.9 pg (25.0-35.0); Mean Corpuscular Volume 98 fL (80-100); Monocytes # (Auto) 0.6 Thou/mm3 (0.0-0.8); Monocytes % (Auto) 7 % (0-12); Neutrophils # (Auto) 8.1 Thou/mm3 (1.8-7.7); Neutrophils % (Auto) 87 % (37-80); Nucleated Red Blood Cell # 0.00 Thou/mm3 (0.00-0.00); Nucleated Red Blood Cell % 0 /100 WBC (0); Platelet Count 96 Thou/mm3 (140-440); RDW Standard Deviation 50.0 fL (36.4-46.3); Red Blood Count 1.92 Miln/mm3 (4.00-5.20); White Blood Count 9.3 Thou/mm3 (3.6-11.0)
[2024-11-06 05:06] LABS: Hematocrit 18.9 % (36.0-46.0); Hemoglobin 6.5 g/dL (12.0-16.0)
[2024-11-06 05:09] LABS: Path Review Blood Smear Sent to Pathologist
[2024-11-06] MEDS: PIPER/TAZO 3.375 GM PREMIX 3.375 GM/50 ML BAG IV (06:24)
[2024-11-06] MEDS: DOCUSATE SOD 100 MG CAPSULE PO (09:17)
[2024-11-06] MEDS: IBUPROFEN TAB 400 MG TABLET 800 MG PO (19:32)
[2024-11-06 20:20] LABS: Basophils # (Auto) 0.0 Thou/mm3 (0.0-0.2); Basophils % (Auto) 0 % (0-2.5); Eosinophils # (Auto) 0.0 Thou/mm3 (0.0-0.5); Eosinophils % (Auto) 0 % (0-10); Hematocrit 29.4 % (36.0-46.0); Hemoglobin 10.1 g/dL (12.0-16.0); Immature Granulocytes Auto 0.10 Thou/mm3 (0.00-0.00); Lymphocytes # (Auto) 0.8 Thou/mm3 (1.0-4.8); Lymphocytes % (Auto) 6 % (10-50); Mean Corpuscular HGB Conc 34.4 g/dl (31.0-37.0); Mean Corpuscular Hemoglobin 32.1 pg (25.0-35.0); Mean Corpuscular Volume 93 fL (80-100); Monocytes # (Auto) 0.7 Thou/mm3 (0.0-0.8); Monocytes % (Auto) 6 % (0-12); Neutrophils # (Auto) 10.3 Thou/mm3 (1.8-7.7); Neutrophils % (Auto) 87 % (37-80); Nucleated Red Blood Cell # 0.00 Thou/mm3 (0.00-0.00); Nucleated Red Blood Cell % 0 /100 WBC (0); Platelet Count 140 Thou/mm3 (140-440); RDW Standard Deviation 53.1 fL (36.4-46.3); Red Blood Count 3.15 Miln/mm3 (4.00-5.20); White Blood Count 11.8 Thou/mm3 (3.6-11.0)
--- NOTE | 2024-11-06 22:39 | PD.LDPPPRG ---
Subjective Subjective Interval history: Patient doing well overall. Minimal discomfort. She is ambulating no lightheadedness/dizziness. Voiding spontaneously, no issues. Tolerating regular diet without nausea/vomiting. Lochia tapering as expected. No fevers/chills, no CP/SOB. Has been visiting baby in NICU. Exam Vital Signs Temp Pulse Resp BP Pulse Ox O2 Del Method 98.9 F 66 16 127/73 98 Room Air 11/06/24 20:09 11/06/24 20:33 11/06/24 20:09 11/06/24 20:33 11/06/24 20:09 11/06/24 20:09 Narrative Exam General: well developed, well nourished, no acute distress, conversant Cardiac: normal heart rate Lungs: breathing without distress Abdomen: soft, post-gravid, non-tender, no rebound or guarding, Fundus firm at u-3cm. Extremities: no pain with palpation of calves, trace edema of BLE Objective Labs 11/06/24 20:00 11/05/24 09:14 Labs: Laboratory Results - last 24 hr 11/06/24 11/06/24 11/06/24 04:30 05:00 20:00 WBC 9.3 11.8 H RBC 1.92 L* 3.15 L Hgb 6.5 L* D 10.1 L D Hct 18.9 L* 29.4 L D MCV 98 93 MCH 33.9 32.1 MCHC 34.4 34.4 RDW Std Deviation 50.0 H 53.1 H Plt Count 96 L 140 D Neut % (Auto) 87 H 87 H Lymph % (Auto) 6 L 6 L [place] % (Auto) 7 6 Eos % (Auto) 0 0 Baso % (Auto) 0 0 Neut # (Auto) 8.1 H 10.3 H Lymph # (Auto) 0.6 L 0.8 L [place] # (Auto) 0.6 0.7 Eos # (Auto) 0.0 0.0 Baso # (Auto) 0.0 0.0 Immature Gran # (Auto) 0.03 H 0.10 H Absolute Nucleated RBC 0.00 0.00 Immature Gran % 0 1 H Nucleated RBC % 0 0 Smear Path Review Sent to Pathologist Blood Type O Positive Antibody Screen NEGATIVE Crossmatch See Detail Blood Bank Wristband ID Yes Assessment & Plan Problem List (1) care and examination: Status: Acute Assessment and plan: Emi is a 39yo [id number] s/p undergoing IOL, doing well on PPD 1. Delivery complicated by PPH, EBL 500ml, treated with uterotonics and Bakri balloon (removed at 2100 on 11/05). PP Hgb 6.5, she was transfused 2u pRBCs with repeat Hgb 10.1. course complicated by fever (last elevated temp at 1030 on 11/05). CXR showed possible early LLL PNA, but patient had no sx of PNA. Blood cx x2 negative at 24hr. Urine cx negative from 11/03. She was started on IV zosyn. Hx GHTN on labetalol 200mg PO BID (bp's normal PP) with thrombocytopenia (plt went from 96 to 140), AST stable in 40's, ALT wnl. Vitals wnl, benign exam. Hemodynamically stable. Plan: -Continue routine care -Stop IV zosyn at 24hr afebrile (1030 today) and observe until tomorrow -Continue labetalol 200mg PO BID -Regular diet -Encourage ambulation -Anticipate discharge home tomorrow if meeting all milestones (2) hemorrhage: Status: Acute (3) Blood transfusion during current hospitalisation: Status: Acute (4) Encounter for supervision of high risk in third trimester, antepartum: Status: Acute (5) Gestational hypertension: Status: Acute (6) Elevated liver transaminase level: Status: Acute Time Spent With Patient Time: Total time spent is greater than 50% in coordination of care (as documented) at patient's floor/unit and/or counseling patient:
[2024-11-07 03:48] VITALS: BP 132/78; PULSE 58; RESP 16; TEMP 36.6; O2SAT 98
[2024-11-07] MEDS: DOCUSATE SOD 100 MG CAPSULE PO (09:09)
[2024-11-07] MEDS: HYDROcodone/APAP 5/325 TABLET 1 TAB PO (09:09)
[2024-11-07 09:10] VITALS: BP 124/61; PULSE 84
[2024-11-07 12:20] VITALS: PULSE 63; RESP 18; TEMP 36.7; O2SAT 97
--- NOTE | 2024-11-07 14:21 | ESDS_ITS ---
DS: Providers Provider Date of admission: 11/03/24 18:21 Primary care physician: Physician No Primary/Family Admitting Provider: Diana Sebastian CNM Attending Provider on Admission: Fabian Huff MD Consults: 11/05/24 10:04 Referral Routine Comment: Attending Provider on DC: Anette Fish MD Discharging Provider: Anette Fish MD DS: Diagnosis Discharge Diagnosis (1) care and examination: Status: Acute (2) hemorrhage: Status: Acute (3) Blood transfusion during current hospitalisation: Status: Acute (4) Elevated liver transaminase level: Status: Acute (5) Gestational hypertension: Status: Acute (6) Advanced maternal age (AMA) in : Status: Acute (7) fever: Status: Acute Problem List Completed Was Problem List Reviewed/Reconciled?: Yes Summary/Hosp Course Brief History: 39-year-old 1 para 0 at 39 weeks and 3 days was sent in from the office by her CNM due to elevated mild range blood pressures. Patient was evaluated on L&D where she was noted to have a series of mild range blood pressures in the upper 140s and 150s over 80s. Patient denies any signs, epigastric or right upper quadrant pain. She is advanced maternal age. On lab testing to rule out preeclampsia she is noted to have elevated transaminases there is also a s ignificant drop in the platelet count compared to her baseline earlier in . Emi is a 39yo [id number] s/p undergoing IOL, doing well on PPD 2. Delivery complicated by PPH, EBL 500ml, treated with uterotonics and Bakri balloon (removed at 2100 on 11/05). PP Hgb 6.5, she was transfused 2u pRBCs with repeat Hgb 10.1. course complicated by fever (last elevated temp at 1030 on 11/05). CXR showed possible early LLL PNA, but patient had no sx of PNA. Blood cx x2 negative at 48hr. Urine cx negative She was treated with IV zosyn for 24hr after last fever and has been afebrile for >24hr since stopping the zosyn. Hx GHTN on labetalol 200mg PO BID (bp's normal PP and labetalol held) with thrombocytopenia (plt went from 96 to 140), AST stable in 40's, ALT wnl. She is now meeting all milestones and feels ready for discharge home. She is ambulating without lightheadedness, tolerating regular diet no n/v, spontaneously voiding without issue. She has no chest pain or shortness of breath. No fevers or chills. Minimal, appropriate discomfort. Vitals normal, benign exam. Hemodynamically stable with no evidence of infection. Peripartum Data Delivery Method: Operative Vaginal Delivery Episiotomy Description: Right Mediolateral Status at Discharge Functional status at discharge: independent ambulation Overall status at discharge: patient is back to baseline Time Spent with Patient Time attestation: Total time spent providing and/or coordinating discharge services: Exam Vital Signs Temp Pulse Resp BP Pulse Ox O2 Del Method 98.0 F 63 18 124/61 97 Room Air 11/07/24 12:20 11/07/24 12:20 11/07/24 12:20 11/07/24 09:10 11/07/24 12:20 11/07/24 12:20 Narrative Exam General: well developed, well nourished, no acute distress, conversant Cardiac: normal heart rate Lungs: breathing without distress Abdomen: soft, post-gravid, non-tender, no rebound or guarding, Fundus firm at u-3cm. Extremities: no pain with palpation of calves, 1+ edema of BLE Discharge Plan Plan Patient Disposition: HOME (Self Care) Patient condition on transfer: Stable Prescriptions/Referrals Prescriptions/Med Rec: New docusate sodium 100 mg Capsule 100 mg PO BID 10 Days Qty: 20 0RF ibuprofen 800 mg tablet 800 mg PO Q8HR PRN (Reason: Pain Scale 4-6 (Moderate) 10 Days Qty: 20 0RF ferrous sulfate 325 mg (65 mg iron) tablet 325 mg PO QDAY Qty: 30 0RF Discontinued ferrous sulfate 325 mg (65 mg iron) tablet 325 mg PO BID 90 Days Qty: 180 2RF docusate sodium [Stool Softener] 100 mg capsule 100 mg PO QDAY 90 Days Qty: 90 2RF No Action ascorbic acid (vitamin C) 500 mg capsule 500 mg PO BID Qty: 60 2RF Referrals: No Primary/Family,Physician [Primary Care Provider] - Patient/Caregiver Discharge Instructions Discharge Activity: activity as tolerated and other Other Discharge Activity Instructions:: vaginal rest and no heavy lifting more than 10 pounds for 6 weeks Other Discharge Diet Instructions: regular diet Education Materials: After a Vaginal Print Language: Macedonian Activity Restrictions/Additional Instructions: follow up with your ob clinic in 1 to 2 weeks for visit, call for appointment Stand Alone Forms: [place] Award Info., Patient Portal Info Letter Discharge Order Discharge Orders: Discharge (Routine); Ordered 11/07/24 Ordered By: Anette Fish Planned Discharge Date 11/07/24 (2) hemorrhage Qualifiers: hemorrhage type: other immediate Qualified Code(s): O72.1 - Other immediate hemorrhage (5) Gestational hypertension Qualifiers: Trimester: third trimester Qualified Code(s): O13.3 - Gestational [- induced] hypertension without significant proteinuria, third trimester
== END 2024-11-07 14:05 | disposition home or self-care (01) | DRG 560 ==
LOC: S4SX 11-05 11:44 → S4NX 11-05 13:11
PROVIDERS: Obstetrics & Gynecology; Admitting Provider Advanced Practice Midwife; Visit Provider Obstetrics & Gynecology
DX: O13.4 Gestational [pregnancy-induced] hypertension without significant proteinuria, complicating childbirth (principal); Z37.0 Single live birth; Z3A.39 39 weeks gestation of pregnancy; O72.1 Other immediate postpartum hemorrhage; O86.4 Pyrexia of unknown origin following delivery
CPT/HCPCS: 36415; 59025; 71045; 76805; 76819; 80053; 81001; 82570; 83036; 83605; 83615; 83880; 84112; 84156; 84484; 84550; 85025; 85384; 85610; 85730; 86780; 86850; 86900; 86901; 86923; 87040; 87086; 94762; J0131; J0689; J2543; J2590; J2795; J3010; J3490; J7120; P9016; S0191; A9270